=== PATIENT | female | born 1985 | race Caucasian/White ===

== ENCOUNTER → 2017-04-25 | Day surgery (SDC) | payer OTHER ==
--- NOTE | 2017-04-19 11:46 | MH ---
cc: ANGELICA TORREZ MD DATE OF ADMISSION: 04/25/2017 REASON FOR ADMISSION Laparoscopy, hysteroscopy with ablation, cystoscopy. HISTORY OF PRESENT ILLNESS The patient is a 31-year-old white female, 2, para 2, with multiple problems. She has issues with chronic pelvic pain, dysfunctional bleeding and bladder issues, bladder urgency. The patient has had an attempt at hysteroscopic evaluation and ablation by a doctor in [place]; this was aborted secondary to significant retroflexion of the uterus. Her pain is typically sharp, in the midline near her incision. She has a for distress and notes that her pain has worsened since that time. Her irregular menstrual bleeding occurs monthly; she has bleeding 8 to 10 days and wants to proceed with ablation. Her bladder issues are mainly that of urgency and frequency with a negative urinalysis. MEDICAL HISTORY ADHD. Otherwise negative for heart, lung, liver disease, hypertension, diabetes or stroke. PAST SURGICAL HISTORY . Attempted endometrial ablation. ALLERGIES GENTAMICIN. PENICILLIN. SULFA. MEDICATIONS Strattera 40 mg daily. SOCIAL HISTORY Works at a local [employer], attends college. No drugs. No alcohol, tobacco or caffeine. OBSTETRICAL HISTORY One vaginal delivery, one . GYNECOLOGIC HISTORY No STDs or abnormal Pap smears. FAMILY HISTORY Noncontributory. REVIEW OF SYSTEMS As above. No chest pain, orthopnea, PND. No nausea, vomiting, fever or chills. The remainder of 14-point review negative except as above. PHYSICAL EXAMINATION VITAL SIGNS: She is afebrile. Vital signs stable. Blood pressure is 120/70, height is 5'5", weight is 183, BMI is 30.5. GENERAL: The patient is alert and oriented, in no acute distress. No sign of cognitive dysfunction or depression. HEENT: Within normal limits. NECK: Supple. No JVD. CHEST: Clear. HEART: Regular rate and rhythm. ABDOMEN: Soft, nontender. No hepatosplenomegaly. No CVA tenderness. PELVIC EXAM: Will be detailed under anesthesia. EXTREMITIES: Normal. SKIN: Without rashes. NEUROLOGIC: Nonfocal. No DVT signs. ASSESSMENT Patient with chronic pelvic pain temporally related to her . We discussed the risks, benefits and alternative to the planned procedure including damage to surrounding organs, bleeding, infection and possibility that the pain may not be relieved. We may consider using an umbilical approach or left upper quadrant approach depending on findings at the exam under anesthesia. The patient with dysfunctional bleeding unresponsive to medicinal therapy. She had an attempted endometrial ablation previously but the device was never energized and the performing candy counter clerk did not feel comfortable proceeding with a significant retroflexion of the uterus. In light of this, we will attempt to do the ablation under laparoscopic guidance with repositioning of the uterus if possible. The patient is aware of the risks, benefits and alternatives of the planned procedure including damage to surrounding organs, bleeding, infection, the possibility that bleeding may not be remedied. The patient with urgency and frequency issues. We discussed options and will proceed with cystoscopy. She is aware of the possibility the pain will not be relieved. In light of the patient's allergies, we will use Flagyl 500 mg IV and Cleocin 900 mg IV for antibiotic prophylaxis and DVT prophylaxis with antibiotic coverage. Anticipate an outpatient procedure. MD KRISTY Cabral/JAMARCUS /11:25 AM /11:32 AM
[~2017-04-25] VITALS: Ht 165.1 cm; Wt 81.4 kg
[~2017-04-25] MED LIST: *MEPERIDINE 25 MG INJ VIAL PERIprocedural Use ONLY ONE; *morphine SULFATE 8 MG/ML PERIprocedure ONLY ONE; ACETAMINOPHEN 1000 MG/100 ML VIAL IV ONE; ATOM40 PO; CHLORHEXIDINE GLUCONATE 2 % 1 PACK (2 CLOTHS) TOPICAL PRN; CLINDAMYCIN INJ 900 MG in SODIUM CHLORIDE 0.9% INJ 100 ML IV ONE; DO NOT ADM ANY ANTICOAGULANT DRUGS PRN; FAMOTIDINE 20 MG/2 ML VIAL ONE; INSULIN HUMAN REGULAR 1,000 UNITS/10 ML VIAL SQ PRN; KETOROLAC TROMETHAMINE 30 MG/ML (IVP) VIAL IV PUSH PRN; LACTATED RINGER'S 1000 ML IV PRN; LIDOCAINE 1%/EPINEPHrine 1:100,000 SOLN 30 ML VIAL INFIL ONE; METOPROLOL TARTRATE 25 MG TAB PO PRN; METRONIDAZOLE 500 MG/100 ML ISONTONIC SOLN IV ONE; MIDAZOLAM HCL 2 MG/2 ML VIAL ONE; NEOSTIGMINE 3 MG/3 ML SYR IV ONE; ONDANSETRON HCL 4 MG/2 ML VIAL IV PUSH ONE; ONDANSETRON HCL 4 MG/2 ML VIAL IV PUSH PRN; POVIDONE IODINE 5% (ANTISEPSIS KIT) 4 APPLICATIONS EACH NARE PRN; PROPOFOL 200 MG/20 ML AMP IV ONE; SODIUM CHLORID 0.9% 500 ML IV PRN; SODIUM CHLORIDE 0.9% INJ 100 ML ONE; fentaNYL CITRATE 250 MCG/5 ML AMP ONE; traMADol HCL 50 MG TAB PO PRN
[2017-04-25 07:53] VITALS: BP 104/72; PULSE 83; RESP 16; TEMP 98.4; O2SAT 96
[2017-04-25 13:00] VITALS: RESP 16; TEMP 98.7; O2SAT 98
[2017-04-25 13:25] VITALS: BP 99/63; PULSE 80
--- NOTE | 2017-04-26 08:30 | MP ---
cc: CHRISTIAN ALEXANDER [facility], KEVIN SAUCEDOYESI LINDO DATE OF SURGERY 04/25/2017 PREOPERATIVE DIAGNOSES 1. Right-sided pelvic pain 2. Dysfunctional bleeding unresponsive to medicinal therapy, failure of prior endometrial ablation attempt 3. Bladder pain syndrome POSTOPERATIVE DIAGNOSES 1. Right-sided pelvic pain 2. Dysfunctional bleeding unresponsive to medicinal therapy, failure of prior endometrial ablation attempt 3. Bladder pain syndrome 4. Adhesions of the right tube and ovary to the right pelvic sidewall. 5. Approximately 5 x 6 cm intracavitary fibroid noted on hysteroscopy 6. Normal bladder with cystoscopy SURGEON Stan Mcleod MD ANESTHESIA General endotracheal with OG tube [employer] [place] staff x1 BLOOD LOSS 5 cc URINE OUTPUT 100 cc FLUIDS 1000 cc crystalloid FINDINGS External genitalia normal POP-Q score: Aa is -2, Ap is -2. Point C is -6. Total vaginal length is 10. Genital hiatus is 8. Perineal body is 4, uterus is retroverted approximately 12 weeks size, mobile. Internal anatomy of the pelvis shows adhesions of the right tube and ovary to the right pelvic sidewall otherwise pelvis is unremarkable. Hysteroscopy shows approximately 5 x 6 cm intracavitary fibroid. No other significant abnormality noted. Cystoscopy shows normal trigone and good coaptation of the urethra. Ureteral orifice patent x2. Dome and base of bladder normal. SPECIMENS Right tube COMPLICATIONS None DISPOSITION To recover room stable. COUNTS Needle and sponge counts correct. DRAINS Bah drains ANTIBIOTIC COVERAGE Cleocin and Flagyl DVT PROPHYLAXIS Sequential compression device. TIME OUT PROCEDURE Per protocol. SUMMARY OF INDICATION FOR THE PROCEDURE Patient with three separate issues. She complains of right-sided pelvic pain which is temporally related to an emergency C-sections several years ago. She also has dysfunctional bleeding unresponsive to medicinal therapy. She had had a prior attempt at an outside center for a NovaSure endometrial ablation, but was told she could not have the procedure because the uterus was to retroverted. She also has bladder pain syndrome with urgency, frequency and negative urinalysis. PROCEDURE The patient was taken to the operating room theater, identified, prepped and draped in a fashion appropriate for the planned procedure. She was in the dorsal spine position with careful attention paid to place of legs in stirrups to avoid undue stress to sensitive vascular structures. Above findings noted. Neurovascular integrity documented. Bah catheter was placed. Umbilicus was infiltrated with epinephrine/lidocaine solution. The patient extensive art work on the abdomen and we did our best to avoid marring the work. We were able to infiltrate the umbilicus, make a small incision and then placed a 5-mm scope under direct visualization. A trocar was placed suprapubically under direct visualization using a needle as a guide and using epinephrine/lidocaine solution. Also in the left lower quadrant, a similar procedure was performed. We using a 5-mm trocar here and an 8-mm at the suprapubic site. The pelvis was inspected. The most striking find was the significant adhesions of the tube and the ovary to the right pelvic sidewall. After significant tension on these adhesions, once these were taken down, the ovary and tube snapped back into the pelvis. The tube was removed in standard salpingectomy technique. The ovary appeared normal. It was left in place. The ureters were identified and cleared from the operative field. The remainder of the pelvis was inspected and found to be normal except for the retroverted uterus with a fundal fibroid. At this point, while we were still observing from above, we performed hysteroscopy using a 5-mm scope with a 30 degree lens. Using normal saline distension medium, we inspected the internal endometrial cavity while we observed from above to make sure there was no perforation. There was a large fiber encountered intracavitary. Decision was made to abort the ablation procedure at this point. There was no sign of any perforation. There was no tissue really to biopsy except for this large fibroid which appeared to be somewhat vascular so the decision was made to not biopsy this structure. At this point, cystoscopy was performed using a 5-mm scope with a 30 degree lens. We backfilled the bladder with 300 cc of normal saline. The above findings were noted. This was also done under direct visualization from above with the laparoscope. At this point, the lower procedures were concluded. The upper abdomen was again inspected with and without gas pressure. All areas were hemostatic. We did place hemostatic powder over the areas of dissection for added reassurance. The gas was expressed. We did place 4-0 Monocryl sutures in the incisions and closed the skin with Dermabond. At this point, the procedure was concluded. If the patient has continued issues with dysfunctional bleeding, she may be a reasonable candidate for either a hysteroscopic myomectomy which we would be referred out for or she may want to avail herself of a supracervical hysterectomy. She will need a discussion regarding the present FDA concerns regarding undiagnosed sarcomas, but I think she would be a reasonable supracervical candidate as she has relatively good apical support. I do not think she would be a very easy vaginal case and if we aer going to pursue with a total hysterectomy, I think total laparoscopic hysterectomy or LAVH may be reasonable. MD KRISTY Cabral/TOMMY /11:50 AM /8:18 AM MTDKylie
== END | disposition home or self-care (01) ==
LOC: HSDC 07:14
PROVIDERS: ATTEND Obstetrics & Gynecology Gynecology
DX: R10.2 Pelvic and perineal pain (principal); N93.8 Other specified abnormal uterine and vaginal bleeding; D25.9 Leiomyoma of uterus, unspecified; N85.4 Malposition of uterus; R39.15 Urgency of urination; R35.0 Frequency of micturition; N99.4 Postprocedural pelvic peritoneal adhesions; F90.9 Attention-deficit hyperactivity disorder, unspecified type
CPT/HCPCS: 00840; 52000; 58555; 58661; 88305; J0131; J1885; J2175; J2250; J2270; J2405; J2710; J3010; J7120

== ENCOUNTER → 2017-07-13 | Day surgery (SDC) | payer OTHER ==
--- NOTE | 2017-07-07 12:24 | MH ---
cc: CHRISTIAN ALEXANDER,YESI TORREZ,ANGELICA SAUCEDO,NAOMI POWERS DATE OF ADMISSION 07/13/2017 DATE OF 1985 REASON FOR ADMISSION Laparoscopic supracervical hysterectomy HISTORY OF PRESENT ILLNESS The patient is a 32-year-old white female 2, para 2 who has had issues with dysfunctional bleeding. She has had an ultrasound and has hysteroscopy that shows a large intracavitary fibroid. She has a laparoscopy in April of 2017 with lysis of adhesions. At this point, she declines myomectomy and wants to proceed with hysterectomy. PAST MEDICAL HISTORY The patient's medical history is negative for heart, lung, liver disease, hypertension, diabetes or stroke. Does have issue with ADHD. PAST SURGICAL HISTORY 1. x2 2. Laparoscopy with lysis of adhesions 3. Hysteroscopy with failed endometrial ablation 4. Cystoscopy ALLERGIES GENTAMYCIN, PENICILLIN, SULFA MEDICATIONS Strattera 40 mg daily SOCIAL HISTORY Works at a [employer]. No alcohol, tobacco, or caffeine. OBSTETRICAL HISTORY One , one vaginal delivery. GYNECOLOGIC HISTORY No STD's or abnormal Pap smears. FAMILY HISTORY Noncontributory REVIEW OF SYSTEMS As above. No chest pain, orthopnea, PND. No nausea, vomiting, fever, or chills. No vaginal bleeding or discharge. PHYSICAL EXAM On exam, she is afebrile, vital signs are stable with a blood pressure was 120/76, 5.5, weight 169, BMI is 28.3. GENERAL: The patient is alert and oriented in stress no sign of cognitive dysfunction or depression. HEENT: Within normal limits is supple. NECK: Supple. No JVD. CHEST: Clear. HEART: Regular rate and rhythm. ABDOMEN: Soft and nontender. No hepatosplenomegaly. No CVA tenderness. PELVIC: Exam POP-Q score: Aa is -2, Ap is -2. Point C is -6. Total vaginal length is 10. Genital hiatus is 8. Perineal body is 4. The uterus is approximately 12 weeks size. Further exam under anesthesia. EXTREMITIES: Warm, skin without rashes. NEUROLOGIC: Exam is nonfocal. No DVT signs. ASSESSMENT Patient with intracavitary uterine fibroid declines myomectomy and wants to proceed with supracervical hysterectomy. The patient and I discussed at length the options for management and treatment. She is aware of the risks, benefits and alternatives to the planned procedure including damage to surrounding organs, bleeding, infection, dyspareunia, operative risks to the bladder, bowel or urinary tract. The patient and I discussed extensively issues regarding FDA concerns regarding undiagnosed sarcoma. The patient has had hysteroscopy and D&C. Biopsy of the cavity appears to be negative, but she is aware that there are no preoperative tests that definitively rule out sarcoma. She is given the option of open hysterectomy which she declines. She is aware that morcellation will possibly upstage her should she have sarcoma and she elects to proceed with the procedure knowing this risk. At this point, we use Flagyl and Cleocin for her antibiotic prophylaxis. DVT prophylaxis with sequential compression device. Anticipate outpatient procedure. MD KRISTY Cabral/TOMMY /11:48 AM /12:11 PM
[~2017-07-13] VITALS: Ht 165.1 cm; Wt 80.3 kg
[~2017-07-13] MED LIST changes: +ACETAMINOPHEN 1000 MG/100 ML 100 ML IV ONE; -ACETAMINOPHEN 1000 MG/100 ML VIAL IV ONE; +BUPIVACAINE/EPINEPHRINE 0.5% 50 ML VIAL ONE; -CLINDAMYCIN INJ 900 MG in SODIUM CHLORIDE 0.9% INJ 100 ML IV ONE; +CLINDAMYCIN INJ 900 MG in SODIUM CHLORIDE 0.9% INJ 100 ML IV SCH; +DEXAMETHASONE SOD PHOS 4 MG/ML VIAL ONE; +FLUORESCEIN SOD 10% SOLN 500 MG/5 ML AMP ONE; +HYDR1CAP30 PO; +HYDROmorphone HCL PF 2 MG/ML VIAL ONE; +KETO2CRE TOPICAL; +KETOROLAC TROMETHAMINE 30 MG/ML (IVP) VIAL IV PUSH ONE; +LACTATED RINGER'S 1000 ML INJ 1,000 ML IV ONE; +LACTATED RINGER'S 1000 ML INJ 1,000 ML IV SCH; -LIDOCAINE 1%/EPINEPHrine 1:100,000 SOLN 30 ML VIAL INFIL ONE; +LIDOCAINE 2%/EPINEPHrine PF 1:200,000 20ML SDV ONE; -METRONIDAZOLE 500 MG/100 ML ISONTONIC SOLN IV ONE; +METRONIDAZOLE 500 MG/100 ML ISONTONIC SOLN IV SCH; +STRA80CA PO; +SUGAMMADEX SODIUM 200 MG/2 ML VIAL IV PUSH ONE; -fentaNYL CITRATE 250 MCG/5 ML AMP ONE
--- NOTE | 2017-07-13 10:35 | MP ---
cc: ANGELICA TORREZ MD,KEVIN ROJO,YESI EVANS,DON Hyde MD DATE OF SURGERY 07/13/2017 PREOPERATIVE DIAGNOSES Pelvic pain, dysmenorrhea, uterine fibroids. POSTOPERATIVE DIAGNOSES Pelvic pain, dysmenorrhea, uterine fibroids with left hydropic tube. PROCEDURE 1. Laparoscopic supracervical hysterectomy 2. Left salpingectomy. SURGEON Dr. Torrez ANESTHESIA General endotracheal with OG tube [employer] [place] staff x1 BLOOD LOSS 25 cc URINE OUTPUT 250 cc FLUIDS 1500 cc crystalloid FINDINGS External genitalia normal. POP-Q score: Aa is -1, Ap is 0. Point C is -6. Total vaginal length is 10. Genital hiatus is 6. Perineal body is 4. Uterus is retroverted approximately 12 weeks size, boggy consistent with adenomyosis and fundal uterine fibroid is noted. Tubes are absent on the right side, left side is somewhat hydropic and adhesed to the ovary. Ovaries themselves appear normal. Upper abdomen normal. Cystoscopy following hysterectomy shows normal trigone, good coaptation of urethra. Ureteral orifices patent x2. Dome and base of bladder normal. SPECIMENS 1. Morcellated uterus. 2. Left tube COMPLICATIONS None DISPOSITION Recovery room stable. COUNTS Needle and sponge counts correct. DRAINS Bah catheter. DISPOSITION To recovery room stable. ANTIBIOTIC PROPHYLAXIS Flagyl and Cleocin DVT PROPHYLAXIS Sequential compression device. TIME OUT PROCEDURE Per protocol SUMMARY OF INDICATIONS FOR THE PROCEDURE Patient with dysmenorrhea, pelvic pain. She had an attempted endometrial ablation, had a distortion of the uterine cavity by uterine fibroid that made that impossible. She had prior laparoscopy for pelvic pain and was noted to have adhesions on the right and an enlarged uterus. The patient had opted for hysterectomy, supracervical approach. She had been apprised of the issues regarding FDA concerns regarding undiagnosed sarcoma and declined open procedure and agreed to mechanical morcellation to remove the uterus. PROCEDURE The patient was taken to the operating room theater, identified, prepped and draped in a fashion appropriate for the planned procedure. She was in the dorsal spine position with careful attention paid to placement of legs in the stirrups to avoid undue stress to sensitive neurovascular structures. Above findings noted. Neurovascular integrity document. A Bah catheter was placed. The umbilicus was infiltrated with epinephrine/lidocaine solution. Incision was made. A 5 mm scope was placed under direct visualization. No damage to underlying bowel contents. Gas insufflated. Auxiliary trocars were placed a 12-mm port suprapubically and two 5 mm ports in the right and left lower quadrants. The patient has extensive tattoo art work on the abdomen and we did our best to avoid any of the art work. The uterus was quite boggy and retroverted. We were able to identify the utero-ovarian ligament on the right and left easily, identified the ureters right and left without complication. We took the left utero-ovarian ligament down with Harmonic energy, came across the round ligament, broad ligament, developed a bladder flap without difficulty and took the uterine vessels with Harmonic energy. On the right side, the utero-ovarian ligament was taken down. We came down across around the broad ligament. We developed the bladder flap and then came across the uterine vessels with good anatomic hemostatic result. The uterus was amputated from the cervix without complication. Gas was expressed. All areas were hemostatic with and without gas pressure. There was one area oozing at the bottom portion of the cervix at about the 6 o'clock position and this was rendered hemostatic with cautery. The morcellator was placed through the 10/12 port, morcellation was performed in a controlled fashion. No spill of contents externally. The pelvis was irrigated. All fragments were identified and obtained. The left ovary was adhesed and hydropic. She had a prior tubal ligation, but this appeared to be a segment of tube which had a characteristic hydrosalpinx appearance. This was removed. The tube on the right had already been removed at a prior procedure. Again, the gas was expressed. All areas were hemostatic with and without gas pressure. We did place hemostatic powder over the areas of dissection for added reassurance, closed the 10/12 port with a suture closure device of 0 Vicryl suture, closed the incisions with 4-0 Monocryl and Dermabond. The patient received IV fluorescein 1 cc. The bladder was back-filled with 300 cc of normal saline. A 5 mm scope was placed under direct visualization. The above findings were noted. The ureteral integrity was documented. The bladder was intact. The patient had the Bah catheter replaced. The patient was reversed from anesthesia, taken to the Recovery Room in stable condition. When the patient meets criteria, she will be discharge home from recovery and followup per protocol. MD KRISTY Cabral/TOMMY /9:39 AM /10:14 AM
[2017-07-13 11:42] VITALS: BP 106/79; PULSE 91; RESP 16; TEMP 97.8; O2SAT 100
== END | disposition home or self-care (01) ==
LOC: HSDC 06:05
PROVIDERS: ATTEND Obstetrics & Gynecology Gynecology
DX: D25.9 Leiomyoma of uterus, unspecified (principal); F90.9 Attention-deficit hyperactivity disorder, unspecified type; K21.9 Gastro-esophageal reflux disease without esophagitis; Z79.899 Other long term (current) drug therapy
CPT/HCPCS: 00840; 58542; 88307; J0131; J1100; J1170; J1885; J2175; J2250; J2270; J2405; J2710; J3010; J7120

== ENCOUNTER 2017-11-18 22:23 | Observation (INO) | payer OTHER ==
[~2017-11-18] VITALS: Ht 165.1 cm; Wt 78.1 kg
[~2017-11-18 22:23] MED LIST changes: -*MEPERIDINE 25 MG INJ VIAL PERIprocedural Use ONLY ONE; -*morphine SULFATE 8 MG/ML PERIprocedure ONLY ONE; -ACETAMINOPHEN 1000 MG/100 ML 100 ML IV ONE; -ATOM40 PO; +AZIT250T3 PO; -BUPIVACAINE/EPINEPHRINE 0.5% 50 ML VIAL ONE; -CHLORHEXIDINE GLUCONATE 2 % 1 PACK (2 CLOTHS) TOPICAL PRN; -CLINDAMYCIN INJ 900 MG in SODIUM CHLORIDE 0.9% INJ 100 ML IV SCH; -DEXAMETHASONE SOD PHOS 4 MG/ML VIAL ONE; -DO NOT ADM ANY ANTICOAGULANT DRUGS PRN; -FAMOTIDINE 20 MG/2 ML VIAL ONE; -FLUORESCEIN SOD 10% SOLN 500 MG/5 ML AMP ONE; -HYDROmorphone HCL PF 2 MG/ML VIAL ONE; -INSULIN HUMAN REGULAR 1,000 UNITS/10 ML VIAL SQ PRN; -KETO2CRE TOPICAL; -KETOROLAC TROMETHAMINE 30 MG/ML (IVP) VIAL IV PUSH ONE; -KETOROLAC TROMETHAMINE 30 MG/ML (IVP) VIAL IV PUSH PRN; -LACTATED RINGER'S 1000 ML INJ 1,000 ML IV ONE; -LACTATED RINGER'S 1000 ML INJ 1,000 ML IV SCH; -LACTATED RINGER'S 1000 ML IV PRN; -LIDOCAINE 2%/EPINEPHrine PF 1:200,000 20ML SDV ONE; -METOPROLOL TARTRATE 25 MG TAB PO PRN; -METRONIDAZOLE 500 MG/100 ML ISONTONIC SOLN IV SCH; -MIDAZOLAM HCL 2 MG/2 ML VIAL ONE; -NEOSTIGMINE 3 MG/3 ML SYR IV ONE; -ONDANSETRON HCL 4 MG/2 ML VIAL IV PUSH ONE; -ONDANSETRON HCL 4 MG/2 ML VIAL IV PUSH PRN; -POVIDONE IODINE 5% (ANTISEPSIS KIT) 4 APPLICATIONS EACH NARE PRN; -PROPOFOL 200 MG/20 ML AMP IV ONE; -SODIUM CHLORID 0.9% 500 ML IV PRN; -SODIUM CHLORIDE 0.9% INJ 100 ML ONE; -SUGAMMADEX SODIUM 200 MG/2 ML VIAL IV PUSH ONE; -traMADol HCL 50 MG TAB PO PRN
[2017-11-18 23:05] VITALS: BP 131/81; PULSE 130; RESP 24; TEMP 99.4; O2SAT 96
[2017-11-19] VITALS (8 sets, daily range): BP systolic 96–124; BP diastolic 62–84; PULSE 68–124; RESP 16–24; TEMP 98–98.5; O2SAT 96–100
[2017-11-19 00:19] LABS: AUTOMATED NEUTROPHIL # 12.7 TH/MM3 (1.8-7.7); BASOPHIL # 0.5 TH/MM3 (0-0.2); BASOPHIL % 2.8 % (0.0-2.0); EOSINOPHIL # 0.1 TH/MM3 (0-0.4); EOSINOPHIL % 0.7 % (0.0-4.0); HEMATOCRIT 45.1 % (35.0-46.0); HEMOGLOBIN 15.4 GM/DL (11.6-15.3); LYMPH % 18.4 % (9.0-44.0); LYMPHOCYTE # 3.1 TH/MM3 (1.0-4.8); MEAN CELL VOLUME 90.5 FL (80.0-100.0); MEAN CORPUSCULAR HEMOGLOBIN 30.8 PG (27.0-34.0); MEAN CORPUSCULAR HGB CONC 34.1 % (32.0-36.0); MEAN PLATELET VOLUME 9.2 FL (7.0-11.0); MONO % 4.2 % (0.0-8.0); MONOCYTE # 0.7 TH/MM3 (0-0.9); NEUT % 73.9 % (16.0-70.0); PLATELET COUNT 314 TH/MM3 (150-450); RED BLOOD COUNT 4.99 MIL/MM3 (4.00-5.30); RED CELL DISTRIBUTION WIDTH 11.9 % (11.6-17.2); WHITE BLOOD COUNT 17.1 TH/MM3 (4.0-11.0)
[2017-11-19 00:27] LABS: CHLORIDE 104 MEQ/L (98-107); SODIUM (NA) 137 MEQ/L (136-145)
[2017-11-19 00:30] LABS: ALBUMIN 4.1 GM/DL (3.4-5.0); BICARBONATE 25.8 MEQ/L (21.0-32.0); GLUCOSE,RANDOM 86 MG/DL (74-106)
[2017-11-19 00:31] LABS: BLOOD UREA NITROGEN 12 MG/DL (7-18)
[2017-11-19 00:33] LABS: ALT (GPT) 23 U/L (10-53)
[2017-11-19 00:34] LABS: AST (GOT) 15 U/L (15-37); CREATININE 0.69 MG/DL (0.50-1.00); GLOMERULAR FILTRATION RATE 100 ML/MIN (>89)
[2017-11-19 00:35] LABS: TOTAL BILIRUBIN ADULT 0.5 MG/DL (0.2-1.0); TOTAL PROTEIN 8.2 GM/DL (6.4-8.2)
[2017-11-19 00:37] LABS: ALKALINE PHOSPHATASE 62 U/L (45-117)
[2017-11-19] MEDS ORDERED: SODIUM CHLOR 0.9% 1000 ML INJ 1,000 ML IV SCH (00:57)
[2017-11-19] MEDS ORDERED: SODIUM CHLORIDE 0.9% FLUSH 10 ML FLUSH IV FLUSH PRN ×2 (01:00→03:00)
[2017-11-19] MEDS ORDERED: ONDANSETRON HCL 4 MG/2 ML VIAL IVP ONE ×2 (01:00→02:45)
[2017-11-19] MEDS ORDERED: HYDROmorphone HCL PF 2 MG/ML VIAL IVS ONE ×2 (01:00→02:45)
--- NOTE | 2017-11-19 01:02 | PD ---
HPI Chief Complaint: Abdominal Pain Time Seen by Provider: 00:54 Travel History International Travel<30 days: No Contact w/Intl Traveler<30days: No Traveled to known affect area: No History of Present Illness HPI The patient is a 32-year-old female that complains of generalized abdominal pain along with nausea without vomiting since 9 PM yesterday. The patient has had a hysterectomy but they left her cervix and in both ovaries. She still has her gallbladder and appendix. She states she has never had this pain before. She denies any fever. She denies any diarrhea. PFSH Past Medical History ADHD: Yes Cancer: No Cardiovascular Problems: No Diminished Hearing: No Endocrine: No Gastrointestinal Disorders: Yes (GERD CONTROLLED BY DIET) Genitourinary: No Hepatitis: No Hiatal Hernia: No Immune Disorder: No Musculoskeletal: No Neurologic: No Psychiatric: Yes (ANXIETY AND ADHD) Reproductive: Yes Respiratory: No Immunizations Current: No Tetanus Vaccination: > 5 Years Influenza Vaccination: No ?: Not : 1 Para: 1 Miscarriage: 1 Tubal Ligation: Yes Past Surgical History Abdominal Surgery: No Body Medical Devices: NONE Cardiac Surgery: No Section: Yes Ear Surgery: No Endocrine Surgery: No Eye Surgery: No Genitourinary Surgery: No Gynecologic Surgery: Yes (C SECTION, TL) Hysterectomy: Yes Oral Surgery: Yes (TONSILLECTOMY, ADENOIDECTOMY AND UVULECTOMY) Thoracic Surgery: No Tonsillectomy: Yes Other Surgery: Yes Social History Alcohol Use: Yes (OCC) Tobacco Use: No Substance Use: No Allergies-Medications (Allergen,Severity, Reaction): Coded Allergies: Sulfa (Sulfonamide Antibiotics) (Verified Allergy, Severe, Permanent dijsability , 11/18/17) gentamicin (Verified Allergy, Severe, Permanent Disability , 11/18/17) penicillin G (Verified Allergy, Severe, Hives, 11/18/17) Reported Meds & Prescriptions Reported Meds & Active Scripts Active Strattera (Atomoxetine) 80 Mg Cap 80 Mg PO DAILY Review of Systems Except as stated in HPI: all other systems reviewed are Neg Physical Exam Narrative GENERAL: The patient is alert, oriented 3 in moderate to severe distress with her abdominal discomfort. Her vital signs show heart rate of 1:30, respirations 24, temperature 99.4 but otherwise unremarkable. SKIN: Focused skin assessment warm/dry. HEAD: Atraumatic. Normocephalic. EYES: Pupils equal and round. No scleral icterus. No injection or drainage. ENT: No nasal bleeding or discharge. Mucous membranes pink and moist. NECK: Trachea midline. No JVD. CARDIOVASCULAR: Regular rate and rhythm. No murmur appreciated. RESPIRATORY: No accessory muscle use. Clear to auscultation. Breath sounds equal bilaterally. GASTROINTESTINAL: Abdomen soft, with tenderness to direct palpation in all 4 quadrants including both flanks. The abdomen is nondistended. Hepatic and splenic margins not palpable. No guarding or rebound is present. MUSCULOSKELETAL: No obvious deformities. No clubbing. No cyanosis. No edema. NEUROLOGICAL: Awake and alert. No obvious cranial nerve deficits. Motor grossly within normal limits. Normal speech. PSYCHIATRIC: Appropriate mood and affect; insight and judgment normal. Data Data Last Documented VS Vital Signs Date Time Temp Pulse Resp B/P (MAP) Pulse Ox O2 Delivery O2 Flow Rate FiO2 11/19/17 01:22 103 20 117/84 (95) 99 Room Air 11/18/17 23:05 99.4 Orders Orders Complete Blood Count With Diff (11/18/17 23:53) Comprehensive Metabolic Panel (11/18/17 23:53) Urinalysis - C+S If Indicated (11/18/17 23:53) Ct Abd/Pel W Iv Contrast(Rout) (11/19/17 00:57) Iv Access Insert/Monitor (11/19/17 00:57) Ecg Monitoring (11/19/17 00:57) Oximetry (11/19/17 00:57) Hydromorphone Pf Inj (Dilaudid Pf Inj) (11/19/17 01:00) Ondansetron Inj (Zofran Inj) (11/19/17 01:00) Sodium Chlor 0.9% 1000 Ml Inj (Ns 1000 M (11/19/17 00:57) Sodium Chloride 0.9% Flush (Ns Flush) (11/19/17 01:00) Lipase (11/19/17 00:05) Iohexol 350 Inj (Omnipaque 350 Inj) (11/19/16 01:45) Hydromorphone Pf Inj (Dilaudid Pf Inj) (11/19/17 02:45) Ondansetron Inj (Zofran Inj) (11/19/17 02:45) Sodium Chlor 0.9% 1000 Ml Inj (Ns 1000 M (11/19/17 02:45) Place In Observation (11/19/17 ) Vital Signs (Adult) Q4H (11/19/17 02:58) Activity Oob Ad Reina (11/19/17 02:58) Intake + Output STEFFANY.QSHIFT (11/19/17 02:58) Diet Regular Basic (11/19/17 Breakfast) Sodium Chlor 0.9% 1000 Ml Inj (Ns 1000 M (11/19/17 02:58) Sodium Chloride 0.9% Flush (Ns Flush) (11/19/17 03:00) Sodium Chloride 0.9% Flush (Ns Flush) (11/19/17 09:00) Ondansetron Inj (Zofran Inj) (11/19/17 03:00) Comprehensive Metabolic Panel (11/20/17 06:00) Complete Blood Count With Diff (11/20/17 06:00) Scd Bilateral/Knee High STEFFANY.BID (11/19/17 02:58) Tyrese Bilateral/Knee High STEFFANY.QSHIFT (11/19/17 03:01) Acetaminophen (Tylenol) (11/19/17 03:00) Acetamin-Hydrocod 325-5 Mg ([place] 5-325 (11/19/17 03:00) Morphine Inj (Morphine Inj) (11/19/17 03:00) Docusate Sodium-Senna (Olga-Colace) (11/19/17 09:00) Magnesium Hydroxide Liq (Milk Of Magnesi (11/19/17 03:00) Sennosides (Senokot) (11/19/17 03:00) Bisacodyl Supp (Dulcolax Supp) (11/19/17 03:00) Lactulose Liq (Lactulose Liq) (11/19/17 03:00) Admit Order (Ed Use Only) (11/19/17 03:01) Labs Laboratory Tests Test 11/19/17 00:05 11/19/17 02:25 White Blood Count 17.1 TH/MM3 Red Blood Count 4.99 MIL/MM3 Hemoglobin 15.4 GM/DL Hematocrit 45.1 % Mean Corpuscular Volume 90.5 FL Mean Corpuscular Hemoglobin 30.8 PG Mean Corpuscular Hemoglobin Concent 34.1 % Red Cell Distribution Width 11.9 % Platelet Count 314 TH/MM3 Mean Platelet Volume 9.2 FL Neutrophils (%) (Auto) 73.9 % Lymphocytes (%) (Auto) 18.4 % Monocytes (%) (Auto) 4.2 % Eosinophils (%) (Auto) 0.7 % Basophils (%) (Auto) 2.8 % Neutrophils # (Auto) 12.7 TH/MM3 Lymphocytes # (Auto) 3.1 TH/MM3 Monocytes # (Auto) 0.7 TH/MM3 Eosinophils # (Auto) 0.1 TH/MM3 Basophils # (Auto) 0.5 TH/MM3 CBC Comment DIFF FINAL Differential Comment Blood Urea Nitrogen 12 MG/DL Creatinine 0.69 MG/DL Random Glucose 86 MG/DL Total Protein 8.2 GM/DL Albumin 4.1 GM/DL Calcium Level 9.0 MG/DL Alkaline Phosphatase 62 U/L Aspartate Amino Transf (AST/SGOT) 15 U/L Alanine Aminotransferase (ALT/SGPT) 23 U/L Total Bilirubin 0.5 MG/DL Sodium Level 137 MEQ/L Potassium Level 3.7 MEQ/L Chloride Level 104 MEQ/L Carbon Dioxide Level 25.8 MEQ/L Anion Gap 7 MEQ/L Estimat Glomerular Filtration Rate 100 ML/MIN Lipase 198 U/L Urine Color YELLOW Urine Turbidity CLEAR Urine pH 5.5 Urine Specific [place] GREATER THAN 1.035 Urine Protein NEG mg/dL Urine Glucose (UA) NEG mg/dL Urine Ketones NEG mg/dL Urine Occult Blood NEG Urine Nitrite NEG Urine Bilirubin NEG Urine Leukocyte Esterase NEG Urine RBC 0-2 /hpf Urine WBC 6-8 /hpf Urine Squamous Epithelial Cells 0-5 /hpf Urine Bacteria OCC /hpf Microscopic Urinalysis Comment CULT NOT INDICATED MDM Medical Decision Making Medical Screen Exam Complete: Yes Emergency Medical Condition: Yes Medical Record Reviewed: Yes Interpretation(s) The CBC shows a white count of 17,100 with 74% neutrophils. The hemoglobin is 15.4 and hematocrit of 45.1. The complete metabolic profile is normal. The urine shows specific gravity of greater than 1.035 but is otherwise unremarkable. Culture is not indicated on the urine. Differential Diagnosis Pyelonephritis, colitis, cholecystitis, pancreatitis, dehydration, electrolyte disorder, appendicitis, intra-abdominal abscess Narrative Course The patient has abdominal pain of unknown etiology. She also has mild to moderate dehydration as suggested by the elevated hemoglobin and probable hemoconcentration. Also the specific gravity in the urine is extremely high. Physician Communication Physician Communication I discussed the patient with Dr. Alberto, the patient will be 23 hour observation to her. Diagnosis Primary Impression: Pain, abdominal, unknown etiology Additional Impression: Mild dehydration Admitting Information Admitting Physician Requests: Observation Reymundo Gomes MD Nov 19, 2017 01:02
[2017-11-19 01:18] LABS: LIPASE 198 U/L (73-393)
[2017-11-19] MEDS ORDERED: IOHEXOL 350 MG/ML 10 ML VIAL (for RAD DIAG) IVCONTRAST ONE (01:34)
[2017-11-19] MEDS: IOHEXOL 350 MG/ML 10 ML VIAL (for RAD DIAG) IVCONTRAST ONE (01:47)
--- NOTE | 2017-11-19 02:00 | RADRPT ---
EXAM DATE/TIME: 11/19/2017 01:34 [facility] COMPARISON: No previous studies available for comparison. INDICATIONS : New onset of diffuse abdominal pain. IV CONTRAST: 96 cc Omnipaque 350 (iohexol) IV ORAL CONTRAST: No oral contrast ingested. RADIATION DOSE: 8.57 CTDIvol (mGy) MEDICAL HISTORY : Gastroesophageal reflux disease. SURGICAL HISTORY : section. Hysterectomy. ENCOUNTER: Initial ACUITY: 1 day PAIN SCALE: 9/10 LOCATION: abdomen TECHNIQUE: Volumetric scanning of the abdomen and pelvis was performed. Using automated exposure control and ad justment of the mA and/or kV according to patient size, radiation dose was kept as low as reasonably achievable to obtain optimal diagnostic quality images. DICOM format image data is available electro nically for review and comparison. FINDINGS: LOWER LUNGS: Mild bibasilar atelectasis. LIVER: Homogeneous density without lesion. There is no dilation of the biliary tree. No calcified gallston es. SPLEEN: Normal size without lesion. PANCREAS: Within normal limits. KIDNEYS: Normal in size and shape. There is no mass or hydronephrosis. Tiny 2 mm stone lower pole left kidney not causing obstruction. Tiny 2 mm stone upper pole right kidney not causing obstruction. ADRENAL GLANDS: Within normal limits. VASCULAR: There is no aortic aneurysm. BOWEL/MESENTERY: The stomach, small bowel, and colon demonstrate no acute abnormality. There is no free intraperitone al air or fluid. The appendix is unremarkable. No inflammatory changes. ABDOMINAL WALL: Within normal limits. RETROPERITONEUM: There is no lymphadenopathy. BLADDER: No wall thickening or mass. REPRODUCTIVE: Within normal limits. INGUINAL: There is no lymphadenopathy or hernia. MUSCULOSKELETAL: Within normal limits for patient age. CONCLUSION: 1. Tiny 2 mm stone upper pole right kidney not causing obstruction. Tiny 2 mm stone lower pole left [place] not causing obstruction. 2. Otherwise, unremarkable examination for patient's age. Oliverio Bee MD on November 19, 2017 at 1:55 Board Certified Radiologist. This report was verified electronically.
[2017-11-19 02:35] LABS: BILIRUBIN, URINE NEG (NEG); BLOOD, URINE NEG (NEG); GLUCOSE,URINE NEG (NEG); KETONE, URINE NEG (NEG); NITRITE,URINE NEG (NEG); PH, URINE 5.5 (5.0-8.5); URINE LEUKOCYTE ESTERASE NEG (NEG)
[2017-11-19 02:42] LABS: BACTERIA, URINE OCC /hpf; RBC, URINE 0-2 /hpf (0-3); SQUAMOUS EPITHELIAL CELL URINE 0-5 /hpf (0-5); URINE COLOR YELLOW (YELLW/STRAW)
[2017-11-19] MEDS: SODIUM CHLOR 0.9% 1000 ML INJ 1,000 ML IV SCH ×5 (02:58→18:32)
[2017-11-19] MEDS ORDERED: BISACODYL 10 MG SUPP RECTAL PRN (03:00)
[2017-11-19] MEDS ORDERED: MAGNESIUM HYDROXIDE SUSP 30 ML CUP PO PRN (03:00)
[2017-11-19] MEDS ORDERED: ACETAMINOPHEN 325 MG TAB PO PRN (03:00)
[2017-11-19] MEDS ORDERED: LACTULOSE SYRUP 20 GM/30 ML CUP PO PRN (03:00)
[2017-11-19] MEDS ORDERED: ONDANSETRON HCL 4 MG/2 ML VIAL IVP PRN (03:00)
[2017-11-19] MEDS ORDERED: MORPHINE SULFATE 2 MG/ML INJ IV PUSH PRN (03:00)
[2017-11-19] MEDS ORDERED: SENNOSIDES 8.6 MG TAB PO PRN (03:00)
[2017-11-19] MEDS: ACETAMINOPHEN/HYDROcodone 325 MG/5 MG TAB PO PRN ×4 (05:44→20:15)
[2017-11-19] MEDS: SODIUM CHLORIDE 0.9% FLUSH 10 ML FLUSH IV FLUSH SCH ×2 (08:25→20:15)
[2017-11-19] MEDS: DOCUSATE SODIUM 50 MG/SENNA 8.6 MG TAB PO SCH ×2 (08:25→20:15)
--- NOTE | 2017-11-19 13:20 | HHI.HP ---
[facility] Non-Staff Admission Diagnosis Abdominal pain unknown etiology, dehydration Diagnoses: (1) Nephrolithiasis Diagnosis: Principal Chief Complaint: Abdominal pain Travel History International Travel<30 Days: No Contact w/Intl Traveler <30 Da: No Traveled to Known Affected Are: No History of Present Illness This is a 32-year-old female patient with a known medical history of ADHD, GERD and anxiety who presented to the ED with complaints of abdominal pain. Patient states that she developed an aching abdominal pain roughly 2 nights ago that was cramping in nature and constant, rated a 10/10 on pain scale at its worse. Does admit to associated nausea. Does admit to subjective fevers and chills; denies headache, vomiting, diarrhea or bowel changes or hematozemia. Denies any dysuria. Does admit to history of partial hysterectomy, removed for continued pelvis pain. Does have a history of anxiety and ADHD, on Strattera at home. Review of Systems Constitutional: DENIES: Fatigue, Fever, Weight loss Eyes: DENIES: Blurred vision, Diplopia Respiratory: DENIES: Cough, Sputum production Cardiovascular: DENIES: Chest pain Gastrointestinal: COMPLAINS OF: Abdominal pain, Nausea, DENIES: Black stools, Bloody stools, Constipation, Diarrhea, Vomiting Hematologic/lymphatic: DENIES: Bruising Immunologic/allergic: DENIES: Eczema Psychiatric: COMPLAINS OF: Anxiety Except as stated in HPI: all other systems reviewed are Neg Past Family Social History Past Medical History ADHD Anxiety GERD Past Surgical History Adenoidectomy Tonsillectomy Uvulectomy Hysterectomy Reported Medications Active Strattera (Atomoxetine) 80 Mg Cap 80 Mg PO DAILY Allergies: Coded Allergies: Sulfa (Sulfonamide Antibiotics) (Verified Allergy, Severe, Permanent dijsability , 11/18/17) gentamicin (Verified Allergy, Severe, Permanent Disability , 11/18/17) penicillin G (Verified Allergy, Severe, Hives, 11/18/17) Active Ordered Medications Current Medications Medications (Trade) Dose Ordered Sig/Holden Route Start Time Stop Time Status Last Admin Sodium Chloride 1,000 ml @ 100 mls/hr Q10H IV 11/19/17 02:58 11/19/17 08:36 (NS Flush) 2 ml UNSCH PRN IV FLUSH 11/19/17 03:00 (NS Flush) 2 ml BID IV FLUSH 11/19/17 09:00 11/19/17 08:25 (Zofran Inj) 4 mg Q6H PRN IVP 11/19/17 03:00 (Tylenol) 650 mg Q6H PRN PO 11/19/17 03:00 ([place] 5-325 Mg) 1 tab Q4H PRN PO 11/19/17 03:00 11/19/17 10:12 (Morphine Inj) 2 mg Q3H PRN IV PUSH 11/19/17 03:00 (Olga-Colace) 1 tab BID PO 11/19/17 09:00 11/19/17 08:25 (Milk Of Magnesia Liq) 30 ml Q12H PRN PO 11/19/17 03:00 (Senokot) 17.2 mg Q12H PRN PO 11/19/17 03:00 (Dulcolax Supp) 10 mg DAILY PRN RECTAL 11/19/17 03:00 (Lactulose Liq) 30 ml DAILY PRN PO 11/19/17 03:00 Social History Denies any tobacco abuse. Denies any alcohol use. Denies any illicit drug use. Physical Exam Vital Signs Vital Signs Date Time Temp Pulse Resp B/P (MAP) Pulse Ox O2 Delivery O2 Flow Rate FiO2 11/19/17 12:20 98.5 90 18 96/62 (73) 99 11/19/17 08:30 98.3 90 16 96/65 (75) 98 11/19/17 04:15 98.4 98 24 114/74 (87) 96 11/19/17 03:08 100 16 119/72 (88) 100 Room Air 11/19/17 01:22 103 20 117/84 (95) 99 Room Air 11/19/17 00:16 124 22 124/72 (89) 99 Room Air 11/18/17 23:05 99.4 130 24 131/81 (98) 96 Physical Exam GENERAL: This is a well-nourished, well-developed patient, in no apparent distress. SKIN: No rashes, ecchymoses or lesions. Warm and dry. HEAD: Atraumatic. Normocephalic. EYES: Pupils equal round and reactive. Extraocular motions intact. No scleral icterus. No injection or drainage. ENT: Nose without bleeding, purulent drainage or septal hematoma. Throat without erythema, tonsillar hypertrophy or exudate. Uvula midline. Airway patent. NECK: Trachea midline. No JVD. Supple. CARDIOVASCULAR: Regular rate and rhythm without murmurs, gallops, or rubs. RESPIRATORY: Clear to auscultation. Breath sounds equal bilaterally. No wheezes , rales, or rhonchi. GASTROINTESTINAL: Abdomen soft, nondistended. Mild tenderness to palpation to right upper quadrant. No guarding. Active x 4 q. MUSCULOSKELETAL: Extremities without clubbing, cyanosis, or edema. No joint tenderness, effusion, or edema noted. NEUROLOGICAL: Awake and alert. Cranial nerves II through XII intact. Motor and sensory grossly within normal limits. Five out of 5 muscle strength in all muscle groups. Normal speech. Laboratory Laboratory Tests Test 11/19/17 00:05 11/19/17 02:25 White Blood Count 17.1 Red Blood Count 4.99 Hemoglobin 15.4 Hematocrit 45.1 Mean Corpuscular Volume 90.5 Mean Corpuscular Hemoglobin 30.8 Mean Corpuscular Hemoglobin Concent 34.1 Red Cell Distribution Width 11.9 Platelet Count 314 Mean Platelet Volume 9.2 Neutrophils (%) (Auto) 73.9 Lymphocytes (%) (Auto) 18.4 Monocytes (%) (Auto) 4.2 Eosinophils (%) (Auto) 0.7 Basophils (%) (Auto) 2.8 Neutrophils # (Auto) 12.7 Lymphocytes # (Auto) 3.1 Monocytes # (Auto) 0.7 Eosinophils # (Auto) 0.1 Basophils # (Auto) 0.5 CBC Comment DIFF FINAL Differential Comment Blood Urea Nitrogen 12 Creatinine 0.69 Random Glucose 86 Total Protein 8.2 Albumin 4.1 Calcium Level 9.0 Alkaline Phosphatase 62 Aspartate Amino Transf (AST/SGOT) 15 Alanine Aminotransferase (ALT/SGPT) 23 Total Bilirubin 0.5 Sodium Level 137 Potassium Level 3.7 Chloride Level 104 Carbon Dioxide Level 25.8 Anion Gap 7 Estimat Glomerular Filtration Rate 100 Lipase 198 Urine Color YELLOW Urine Turbidity CLEAR Urine pH 5.5 Urine Specific [place] GREATER THAN 1.035 Urine Protein NEG Urine Glucose (UA) NEG Urine Ketones NEG Urine Occult Blood NEG Urine Nitrite NEG Urine Bilirubin NEG Urine Leukocyte Esterase NEG Urine RBC 0-2 Urine WBC 6-8 Urine Squamous Epithelial Cells 0-5 Urine Bacteria OCC Microscopic Urinalysis Comment CULT NOT INDICATED Result Diagram: 11/19/17 0005 11/19/17 0005 Imaging Last Impressions Abdomen/Pelvis CT 11/19/17 0057 Signed Impressions: Service Date/Time: Sunday, November 19, 2017 01:34 - CONCLUSION: 1. Tiny 2 mm stone upper pole right kidney not causing obstruction. Tiny 2 mm stone lower pole left kidney not causing obstruction. 2. Otherwise, unremarkable examination for patient's age. MD Miguel Daniel VTE Risk Assessment Caprinkenn VTE Risk Assessment: No/Low Risk (score <= 1) Caprini Risk Assessment Model Point Value = 1 Point Value = 2 Point Value = 3 Point Value = 5 Age 41-60 Minor surgery BMI > 25 kg/m2 Swollen legs Varicose veins or History of unexplained or recurrent spontaneous Oral contraceptives or hormone replacement Sepsis (< 1 month) Serious lung disease, including pneumonia (< 1 month) Abnormal pulmonary function Acute myocardial infarction Congestive heart failure (< 1 month) History of inflammatory bowel disease Medical patient at bed rest Age 61-74 Arthroscopic surgery Major open surgery (> 45 min) Laparoscopic surgery (> 45 min) Malignancy Confined to bed (> 72 hours) Immobilizing plaster cast Central venous access Age >= 75 History of VTE Family history of VTE Factor V Leiden Prothrombin [id number] Lupus anticoagulant Anticardiolipin antibodies Elevated serum homocysteine Heparin-induced thrombocytopenia Other congenital or acquired thrombophilia Stroke (< 1 month) Elective arthroplasty Hip, pelvis, or leg fracture Acute spinal cord injury (< 1 month) Prophylaxis Regimen Total Risk Factor Score Risk Level Prophylaxis Regimen 0-1 Low Early ambulation 2 Moderate Order ONE of the following: *Sequential Compression Device (SCD) *Heparin 5000 units SQ BID 3-4 Higher Order ONE of the following medications: *Heparin 5000 units SQ TID *Enoxaparin/Lovenox 40 mg SQ daily (WT < 150 kg, CrCl > 30 mL/min) *Enoxaparin/Lovenox 30 mg SQ daily (WT < 150 kg, CrCl > 10-29 mL/min) *Enoxaparin/Lovenox 30 mg SQ BID (WT < 150 kg, CrCl > 30 mL/min) AND/OR *Sequential Compression Device (SCD) 5 or more Highest Order ONE of the following medications: *Heparin 5000 units SQ TID (Preferred with Epidurals) *Enoxaparin/Lovenox 40 mg SQ daily (WT < 150 kg, CrCl > 30 mL/min) *Enoxaparin/Lovenox 30 mg SQ daily (WT < 150 kg, CrCl > 10-29 mL/min) *Enoxaparin/Lovenox 30 mg SQ BID (WT < 150 kg, CrCl > 30 mL/min) AND *Sequential Compression Device (SCD) Assessment and Plan Problem List: (1) Nephrolithiasis ICD Code: N20.0 - Calculus of kidney Plan: With pain and tachycardia (probably secondary to pain) and mild leukocytosis meet SIRs criteria. Unknown source. Abdomen/Pelvis CT reviewed showing tiny 2 mm stone upper pole right kidney not causing obstruction. Tiny 2 mm stone lower left kidney not causing obstruction. Pain control, Morphine IV and [place] PO available PRN as needed per pain scale. Status post 2L NS bolus in ED. Ensure hydration, continue IVF. Encourage PO intake as tolerated. Control nausea, Zofran available PRN. Afebrile. Monitor for any signs of infection. Supportive care. DVT Prophylaxis: SCDs. (2) ADHD (attention deficit hyperactivity disorder) ICD Code: F90.9 - Attention-deficit hyperactivity disorder, unspecified type Status: Acute Plan: Continue home Strattera. Supportive care. Stable. (3) Chronic anxiety ICD Code: F41.9 - Anxiety disorder, unspecified Plan: Xanax PRN as needed. DVT Prophylaxis: SCDs. Lisa Jordan Nov 19, 2017 13:20
[2017-11-19] MEDS: ALPRAZolam 0.5 MG TAB PO PRN (13:43)
[2017-11-19] MEDS: ATOMOXETINE HYDROCHLORIDE 40 MG CAP PO SCH (15:40)
[2017-11-20] VITALS: PULSE 95; RESP 18; TEMP 98; O2SAT 98
[2017-11-20] MEDS: ACETAMINOPHEN/HYDROcodone 325 MG/5 MG TAB PO PRN ×3 (00:26→09:17)
[2017-11-20] MEDS: ALPRAZolam 0.5 MG TAB PO PRN (00:26)
[2017-11-20 04:00] VITALS: BP 103/65; PULSE 80; RESP 20; TEMP 98.3; O2SAT 99
[2017-11-20] MEDS: SODIUM CHLOR 0.9% 1000 ML INJ 1,000 ML IV SCH (04:15)
[2017-11-20 05:13] VITALS: RESP 14
[2017-11-20 07:46] LABS: AUTOMATED NEUTROPHIL # 2.6 TH/MM3 (1.8-7.7); BASOPHIL # 0.1 TH/MM3 (0-0.2); BASOPHIL % 1.1 % (0.0-2.0); EOSINOPHIL # 0.2 TH/MM3 (0-0.4); EOSINOPHIL % 3.1 % (0.0-4.0); HEMATOCRIT 35.5 % (35.0-46.0); HEMOGLOBIN 12.1 GM/DL (11.6-15.3); LYMPHOCYTE # 2.4 TH/MM3 (1.0-4.8); MEAN CELL VOLUME 92.4 FL (80.0-100.0); MEAN CORPUSCULAR HEMOGLOBIN 31.5 PG (27.0-34.0); MEAN PLATELET VOLUME 9.3 FL (7.0-11.0); MONO % 6.9 % (0.0-8.0); MONOCYTE # 0.4 TH/MM3 (0-0.9); NEUT % 46.9 % (16.0-70.0); PLATELET COUNT 221 TH/MM3 (150-450); RED BLOOD COUNT 3.84 MIL/MM3 (4.00-5.30); RED CELL DISTRIBUTION WIDTH 11.9 % (11.6-17.2); WHITE BLOOD COUNT 5.8 TH/MM3 (4.0-11.0)
[2017-11-20 07:55] LABS: CHLORIDE 105 MEQ/L (98-107); SODIUM (NA) 140 MEQ/L (136-145)
[2017-11-20 08:07] LABS: ALBUMIN 2.9 GM/DL (3.4-5.0); ALKALINE PHOSPHATASE 49 U/L (45-117); ALT (GPT) 21 U/L (10-53); AST (GOT) 15 U/L (15-37); BICARBONATE 29.1 MEQ/L (21.0-32.0); BLOOD UREA NITROGEN 5 MG/DL (7-18); CALCIUM 8.1 MG/DL (8.5-10.1); CREATININE 0.58 MG/DL (0.50-1.00); GLOMERULAR FILTRATION RATE 122 ML/MIN (>89); GLUCOSE,RANDOM 72 MG/DL (74-106); TOTAL BILIRUBIN ADULT 0.6 MG/DL (0.2-1.0); TOTAL PROTEIN 6.4 GM/DL (6.4-8.2)
[2017-11-20] MEDS ORDERED: PROM25TA10 PO (09:05)
--- NOTE | 2017-11-20 09:06 | HHI.DCPOC ---
Discharge Care Plan Diagnosis: (1) Pain, abdominal, unknown etiology (2) Nephrolithiasis Goals to Promote Your Health * To prevent worsening of your condition and complications * To maintain your health at the optimal level Directions to Meet Your Goals Take your medications as prescribed Follow your dietary instruction Follow activity as directed Keep your appointments as scheduled Take your immunizations and boosters as scheduled If your symptoms worsen call your PCP, if no PCP go to Urgent Care Center or Emergency Room Smoking is Dangerous to Your Health. Avoid second hand smoke Call the 24-hour hour crisis hotline for domestic abuse at Sil Gonzalez MD Nov 20, 2017 09:06
--- NOTE | 2017-11-20 09:08 | HHI.DS ---
Discharge Summary Admission Date Nov 19, 2017 at 03:03 Discharge Date: Nov 20, 2017 Admitting Diagnosis Abdominal pain unknown etiology, dehydration (1) Nephrolithiasis ICD Code: N20.0 - Calculus of kidney (2) ADHD (attention deficit hyperactivity disorder) ICD Code: F90.9 - Attention-deficit hyperactivity disorder, unspecified type Status: Acute (3) Chronic anxiety ICD Code: F41.9 - Anxiety disorder, unspecified Procedures none Brief History - From Admission This is a 32-year-old female patient with a known medical history of ADHD, GERD and anxiety who presented to the ED with complaints of abdominal pain. Patient states that she developed an aching abdominal pain roughly 2 nights ago that was cramping in nature and constant, rated a 10/10 on pain scale at its worse. Does admit to associated nausea. Does admit to subjective fevers and chills; denies headache, vomiting, diarrhea or bowel changes or hematozemia. Denies any dysuria. Does admit to history of partial hysterectomy, removed for continued pelvis pain. Does have a history of anxiety and ADHD, on Strattera at home. CBC/BMP: 11/20/17 0700 11/20/17 0700 Significant Findings Laboratory Tests Test 11/19/17 00:05 11/19/17 02:25 11/20/17 07:00 White Blood Count 17.1 TH/MM3 (4.0-11.0) Hemoglobin 15.4 GM/DL (11.6-15.3) Neutrophils (%) (Auto) 73.9 % (16.0-70.0) Basophils (%) (Auto) 2.8 % (0.0-2.0) Neutrophils # (Auto) 12.7 TH/MM3 (1.8-7.7) Basophils # (Auto) 0.5 TH/MM3 (0-0.2) Urine Specific [place] GREATER THAN 1.035 Urine WBC 6-8 /hpf (0-5) Urine Bacteria OCC /hpf (NONE) Red Blood Count 3.84 MIL/MM3 (4.00-5.30) Blood Urea Nitrogen 5 MG/DL (7-18) Random Glucose 72 MG/DL (74-106) Albumin 2.9 GM/DL (3.4-5.0) Calcium Level 8.1 MG/DL (8.5-10.1) Imaging Last Impressions Abdomen/Pelvis CT 11/19/17 0057 Signed Impressions: Service Date/Time: Sunday, November 19, 2017 01:34 - CONCLUSION: 1. Tiny 2 mm stone upper pole right kidney not causing obstruction. Tiny 2 mm stone lower pole left kidney not causing obstruction. 2. Otherwise, unremarkable examination for patient's age. Oliverio Bee MD PE at Discharge GENERAL: This is a well-nourished, well-developed patient, in no apparent distress. CARDIOVASCULAR: Regular rate and rhythm without murmurs, gallops, or rubs. RESPIRATORY: Clear to auscultation. Breath sounds equal bilaterally. No wheezes , rales, or rhonchi. GASTROINTESTINAL: Abdomen soft, non-tender, nondistended. Normal active bowel sounds MUSCULOSKELETAL: Extremities without clubbing, cyanosis, or edema. NEURO: Alert & Oriented x4 to person, place, time, situation. Moves all ext x4 Pt update on day of discharge Patient seen and evaluated for discharge planning. No new complaints today. Imaging results discussed with patient. Patient with adequate bowel movements and tolerating her diet. She'll need outpatient follow-up. Patient's rest understanding Hospital Course Patient seen and evaluated for abdominal pain. She appears to have small kidney stones without evidence of obstruction. Patient was tolerating her diet and moving her bowels without difficulty. There is no evidence of infection or obstruction. Otherwise imaging was unremarkable. Clinically the patient was quite stable and appropriate for discharge Pt Condition on Discharge: Good Discharge Disposition: Discharge Home Discharge Time: <= 30 minutes Discharge Instructions DIET: Follow Instructions for: As Tolerated, No Restrictions Activities you can perform: Regular-No Restrictions Follow up Referrals: Gastroenterology @ [facility] PCP Follow-up New Medications: Promethazine (Phenergan) 25 Mg Tablet 25 MG PO Q6H PRN for NAUSEA OR VOMITING, #20 TAB 0 Refills Continued Medications: Atomoxetine (Strattera) 80 Mg Cap 80 MG PO DAILY for Hyperactivity Control, #90 CAP 0 Refills Sil Gonzalez MD Nov 20, 2017 09:08
[2017-11-20] MEDS: DOCUSATE SODIUM 50 MG/SENNA 8.6 MG TAB PO SCH (09:18)
[2017-11-20] MEDS: SODIUM CHLORIDE 0.9% FLUSH 10 ML FLUSH IV FLUSH SCH (09:18)
[2017-11-20] MEDS: ATOMOXETINE HYDROCHLORIDE 40 MG CAP PO SCH (09:18)
[2017-11-20] MEDS ORDERED: ACET300T2 PO (10:32)
[2017-11-21] MEDS: IOHEXOL 350 MG/ML 10 ML VIAL (for RAD DIAG) IVCONTRAST ONE (09:03)
== END 2017-11-20 10:48 | disposition home or self-care (01) ==
LOC: PHED 22:23 → PHEDA 11-19 03:03 → PHICU 11-19 04:10 → PH3A 11-20 05:18
PROVIDERS: ADMIT Hospitalist; ATTEND Hospitalist
DX: N20.0 Calculus of kidney (principal); E86.0 Dehydration; D72.829 Elevated white blood cell count, unspecified; F41.9 Anxiety disorder, unspecified; F90.9 Attention-deficit hyperactivity disorder, unspecified type; K21.9 Gastro-esophageal reflux disease without esophagitis; Z90.710 Acquired absence of both cervix and uterus
CPT/HCPCS: 74177; 80053; 81001; 83690; 85025; 96361; 96374; 96375; 96376; 99285; G0378; J1170; J2405; J7030; Q9967

== ENCOUNTER 2018-12-21 13:39 | Inpatient (IN) ==
[2018-12-21] MEDS ORDERED: Morphine Inj 4 MG/ML Vial IV.PUSH ONE (14:24)
[2018-12-21] MEDS ORDERED: Sod Chloride 0.9% Inj 1,000 ML IV.SIG ONE (14:24)
--- NOTE | 2018-12-21 14:33 | ED ---
HPI General Chief complaint: Abdominal Pain Stated complaint: Left Side Lower Abd Pain/Burning Time Seen by Provider: 12/21/18 14:04 Source: patient Mode of arrival: ambulatory Limitations: no limitations History of Present Illness HPI narrative: This a 33-year-old woman presents to the emergency department complaining of left-sided abdominal pain. She is a history of intermittent severe abdominal pain in the past. She has had been diagnosed with diverticulitis in the past due to CT findings. She also states she has had kidney stones in the past. She was referred to GI but is been unable to see him states symptoms started a couple hours ago, associate with nausea she has not had a bowel movement today. She has not noticed any urinary symptoms prior to arrival however here she knows that her urine sample she gave was a little bit dark. no other complaints. Related Data Home Medications Medication Instructions Recorded Confirmed No Known Home Medications 12/21/18 12/21/18 Allergies Allergy/AdvReac Type Severity Reaction Status Date / Time gentamicin Allergy Severe Permanent Verified 12/21/18 13:52 Disability penicillin G Allergy Severe Hives Verified 12/21/18 13:52 Sulfa (Sulfonamide Allergy Severe Permanent Verified 12/21/18 13:52 Antibiotics) dijsability Penicillins Allergy Intermediate RASH Verified 12/21/18 13:52 Review of Systems ROS: all other systems reviewed are negative [facility] Medical History Medical History ADHD (Acute) Anxiety (Acute) History of hysterectomy (Acute) Surgical History Surgical History History of tonsillectomy (Acute) Social History Social History Substance History: No History of Abuse Second Hand Smoke Exposure: No Smoking Status: Never smoker Tobacco Type: Cigarettes How Often Do You Have a Drink Containing Alcohol: Never Recent Travel in [facility] within the Last 8 Weeks: No Recent Out of Country Travel within the Last 8 Weeks: No Immunization History Tetanus Immunization: Unsure Exam Narrative Exam Narrative: GENERAL: Well-appearing 33-year-old woman, no acute distress. SKIN: Focused skin assessment warm/dry. HEAD: Atraumatic. Normocephalic. EYES: Pupils equal and round. No scleral icterus. No injection or drainage. ENT: No nasal bleeding or discharge. Mucous membranes pink and moist. NECK: Trachea midline. No JVD. CARDIOVASCULAR: Regular rate and rhythm. No murmur appreciated. RESPIRATORY: No accessory muscle use. Clear to auscultation. Breath sounds equal bilaterally. GASTROINTESTINAL: Abdomen soft, no distention, with diffuse left-sided tenderness to palpation. MUSCULOSKELETAL: No obvious deformities. No edema. NEUROLOGICAL: Awake and alert. No obvious cranial nerve deficits. Motor grossly within normal limits. Normal speech. Course Initial Documented Vital Signs Temperature 98.1 F 12/21/18 13:49 Pulse Rate 105 H 12/21/18 13:49 Respiratory Rate 16 12/21/18 13:49 Blood Pressure 151/96 H 12/21/18 13:49 Pulse Oximetry 96 12/21/18 13:49 Last Documented Vital Signs Temperature 98.1 F 12/21/18 13:49 Pulse Rate 100 H 12/21/18 13:51 Respiratory Rate 20 12/21/18 13:51 Blood Pressure 128/76 12/21/18 13:51 Pulse Oximetry 97 12/21/18 13:51 Medical Decision Making MDM Narrative Medical decision making narrative: 33-year-old woman with recurrent left-sided abdominal pain. History of colitis/diverticulitis. States a family history of bowel problems but no is been diagnosed with IBD in the past. States she has had kidney stones and certainly with the urinary changes that seems possible. Pyelonephritis also possible. Recommend repeating the CT scan mostly based on abnormal findings on her last CT with a recommendation for follow-up imaging. This, combined with the diagnostic uncertainty, I think makes repeat imaging. Reassess. FINAL: Patient with diverticulitis with likely abscess, worsening since last seen technique. Recommend admission, IV antibiotics, consider consultation if needed. Medical Screen Exam Complete: Yes Emergency Medical Condition: Yes Lab Data Lab results reviewed: Yes I reviewed the patient's lab results. Result diagrams: 12/21/18 14:46 12/21/18 14:46 Lab Results 12/21/18 12/21/18 12/21/18 Range/Units 14:46 14:46 14:49 CBC w Diff Auto diff final WBC 8.9 (4.0-11.0) th/mm3 RBC 4.54 (4.00-5.30) mil/mm3 Hgb 14.3 (11.6-15.3) gm/dL Hct 41.3 (35.0-46.0) % MCV 91.0 (80.0-100.0) fL MCH 31.4 (27.0-34.0) pg MCHC 34.5 (32.0-36.0) % RDW 11.6 (11.6-17.2) % Plt Count 293 (150-450) th/mm3 MPV 8.4 (7.0-11.0) fL Neut % (Auto) 70.7 H (16.0-70.0) % Lymph % (Auto) 22.5 (9.0-44.0) % [place] % (Auto) 4.6 (0.0-8.0) % Eos % (Auto) 0.7 (0.0-4.0) % Baso % (Auto) 1.5 (0.0-2.0) % Neut # (Auto) 6.3 (1.8-7.7) th/mm3 Lymph # (Auto) 2.0 (1.0-4.8) th/mm3 [place] # (Auto) 0.4 (0.0-0.9) th/mm3 Eos # (Auto) 0.1 (0.0-0.4) th/mm3 Baso # (Auto) 0.1 (0.0-0.2) th/mm3 WBC Differential . Differential Comment . Sodium 138 (136-145) meq/L Potassium 3.9 (3.5-5.1) meq/L Chloride 106 (98-107) meq/L Carbon Dioxide 27.8 (21.0-32.0) meq/L Anion Gap 4 L (5-15) meq/L BUN 14 (7-18) mg/dL Creatinine 0.65 (0.50-1.00) mg/dL Estimated GFR Greater than 89 (>89) mL/min Random Glucose 94 (74-106) mg/dL Calcium 8.8 (8.5-10.1) mg/dL Magnesium 2.3 (1.5-2.5) mg/dL Total Bilirubin 0.4 (0.2-1.0) mg/dL AST 14 L (15-37) U/L ALT 29 (10-53) U/L Alkaline Phosphatase 61 (45-117) U/L Total Protein 7.9 (6.4-8.2) g/dL Albumin 3.7 (3.4-5.0) g/dL Lipase 129 (73-393) U/L Ur Collection Type Clean catch Urine Color Yellow (Yellw/Straw) Urine Clarity Cloudy H (Clear) Urine pH 7.5 (5.0-8.5) Ur Specific [place] 1.010 (1.002-1.035) Urine Protein Negative (Neg-Trace) mg/dL Urine Glucose (UA) Negative (Negative) mg/dL Urine Ketones Negative (Negative) mg/dL Urine Occult Blood Negative (Negative) Urine Nitrate Negative (Negative) Urine Bilirubin Negative (Negative) Urine Urobilinogen 0.2 (Less than 2) mg/dL Ur Leukocyte Esterase Negative (Negative) Urine WBC 0-5 (0-5) /hpf Ur Squamous Epith Cells 0-5 (0-5) /hpf Amorphous Sediment Many H (None) /hpf Micro UA Comment Culture not ind Ur Microscopic Review Microscopic reviewed Urine Culture Comments Culture not ind Imaging Data Radiologist's impression: Abdomen/Pelvis CT 12/21/18 14:27 CONCLUSION: 1. Persistent induration about the short segment of distal descending colon with interval increase in the size of a enhancing thin wall adjacent fluid collection, now measuring 3 cm. This may represent a small peridiverticular abscess, or conceivably a enlarged node or mass. 2. No free fluid in the pelvis. No dilated loops of small or large bowel. Peridiverticular abscess versus mass. Discharge Plan Discharge Disposition Patient Disposition: ED Admit(ED Internal Use Only) Discharge Order Discharge Orders: ED Use Only Admit Order (Routine); Ordered 12/21/18 Ordered By: Henry Alfonso Physicians Team ED Provider: Henry Alfonso Primary Care Provider: Primary Care Barbara Matthew Rxs /Orders / Referrals /Forms Prescriptions: No Action No Known Home Medications RF: 0 Discharge Interventions Interventions: Vital Signs Last Done: 12/21/18 13:51 Status ED Status: With Doctor
[2018-12-21 14:56] LABS: Bilirubin,Urine Negative (Negative); Clarity,Urine Cloudy (Clear); Color,Urine Yellow (Yellw/Straw); Glucose,Urine (UA) Negative (Negative); Leukocyte Esterase,Urine Negative (Negative); Nitrite,Urine Negative (Negative); PH,Urine 7.5 (5.0-8.5); Urobilinogen,Urine 0.2 mg/dL (Less than 2)
[2018-12-21 14:58] LABS: Baso # (Auto) 0.1 th/mm3 (0.0-0.2); Baso % (Auto) 1.5 % (0.0-2.0); Eos # (Auto) 0.1 th/mm3 (0.0-0.4); Eos % (Auto) 0.7 % (0.0-4.0); Hematocrit 41.3 % (35.0-46.0); Hemoglobin 14.3 gm/dL (11.6-15.3); Lymph % (Auto) 22.5 % (9.0-44.0); Mean Corpuscular HGB Conc 34.5 % (32.0-36.0); Mean Corpuscular Hemoglobin 31.4 pg (27.0-34.0); Mean Platelet Volume 8.4 fL (7.0-11.0); Mono # (Auto) 0.4 th/mm3 (0.0-0.9); Mono % (Auto) 4.6 % (0.0-8.0); Neut # (Auto) 6.3 th/mm3 (1.8-7.7); Neut % (Auto) 70.7 % (16.0-70.0); Platelet Count 293 th/mm3 (150-450); Red Blood Count 4.54 mil/mm3 (4.00-5.30); Red Cell Distribution Width 11.6 % (11.6-17.2); White Blood Count 8.9 th/mm3 (4.0-11.0)
[2018-12-21 15:11] LABS: Chloride 106 meq/L (98-107); Potassium 3.9 meq/L (3.5-5.1); Sodium 138 meq/L (136-145)
[2018-12-21 15:14] LABS: Calcium 8.8 mg/dL (8.5-10.1)
[2018-12-21 15:15] LABS: Albumin 3.7 g/dL (3.4-5.0); Anion Gap 4 meq/L (5-15); Blood Urea Nitrogen 14 mg/dL (7-18); Carbon Dioxide 27.8 meq/L (21.0-32.0); Glucose,Random 94 mg/dL (74-106); Lipase 129 U/L (73-393); Magnesium 2.3 mg/dL (1.5-2.5)
[2018-12-21 15:17] LABS: Alanine Aminotransferase 29 U/L (10-53)
[2018-12-21 15:18] LABS: Aspartate Aminotransferase 14 U/L (15-37); Glomerular Filtration Rate Greater Than 89 mL/min (>89)
[2018-12-21 15:19] LABS: Total Protein 7.9 g/dL (6.4-8.2)
[2018-12-21 15:20] LABS: Alkaline Phosphatase 61 U/L (45-117)
--- NOTE | 2018-12-21 15:21 | CT ---
EXAM DATE: 12/21/2018 3:06 PM EST AGE/SEX: 33 years / Female INDICATIONS: Left abdominal pain. Nausea, vomiting and distention. CLINICAL DATA: This is the patient's initial encounter. Patient reports that signs and symptoms have been present for 1 day and indicates a pain score of 8/10. MEDICAL/SURGICAL HISTORY: Renal calculi. Diverticulitis. Hysterectomy. Tonsillectomy. ORAL CONTRAST: No oral contrast ingested. RADIATION DOSE: 12.66 CTDI (mGy) COMPARISON: [facility], CT ABDOMEN & PELVIS W CONTRAST, 06/16/2018. . TECHNIQUE: Multiple contiguous axial images were obtained through the abdomen and pelvis following b olus infusion of 95 ml Omnipaque 350 (iohexol) nonionic water-soluble contrast as a single exam dos e. No oral contrast ingested. Using automated exposure control and adjustment of the mA and/or kV ac cording to patient size, radiation dose was kept as low as reasonably achievable to obtain optimal di agnostic quality images. DICOM format image data is available electronically for review and comparis on. FINDINGS: Lower Lungs: The visualized lower lungs are clear. Liver: The liver has a homogeneous density without space-occupying lesion. There is no dilation of th e biliary tree. Calcified gallstones. Spleen: Homogeneous density without enlargement. Pancreas: Unremarkable without mass or calcification. Kidneys: Normal in size and shape. No evidence of mass or hydronephrosis. Stable 3 mm calcified ston e in the collecting system of the lower pole of the left kidney. Adrenal Glands: Unremarkable. Aorta: The aorta and proximal iliac vessels are grossly unremarkable without aneurysmal dilation. Bowel/Mesentery: No dilated loops of small or large bowel. There is persistent induration of the fat about the distal left colon, very similar appearance to prior CT in June 2018. There is a enhancin g mildly irregular oval-shaped opacity adjacent and anterior to the area of induration measuring 2.1 x 2.9 x 3.0 cm which is larger than on the prior scan. There is a low-density center but no intralumi nal gas. No focal fluid collections seen. No evidence of free gas. No evidence of free fluid. Abdominal Wall: Intact. Retroperitoneum: No evidence of adenopathy in the retrocrural, para-aortic, or deep pelvic regions. Bladder: Contours are smooth. Reproductive Organs: No abnormal masses or calcifications seen. Inguinal: The inguinal region is unremarkable without evidence of adenopathy. Bony Structures: Unremarkable. CONCLUSION: 1. Persistent induration about the short segment of distal descending colon with interval increase i n the size of a enhancing thin wall adjacent fluid collection, now measuring 3 cm. This may represent a small peridiverticular abscess, or conceivably a enlarged node or mass. 2. No free fluid in the pelvis. No dilated loops of small or large bowel. Electronically signed by: Geovanny Collado MD Board Certified Radiologist 12/21/2018 3:19 PM EST
[2018-12-21 15:24] LABS: WBC,Urine 0-5 /hpf (0-5)
[2018-12-21 15:25] LABS: Amorphous Sediment,Urine Many /hpf; Squamous Epithelial Cell,Urine 0-5 /hpf (0-5)
[2018-12-21] MEDS ORDERED: Ciprofloxacin 400 MG/200 ML 400 MG/200 ML PIGGYBACK IV.SIG ONE (15:41)
[2018-12-21] MEDS ORDERED: Morphine Inj 4 MG/ML Vial IV.PUSH PRN ×2 (15:42)
[2018-12-21] MEDS ORDERED: Acetaminophen 325 MG Tablet PO PRN (15:42)
[2018-12-21] MEDS ORDERED: HYDROmorphone PF Inj 2 MG/ML Vial IV.PUSH ONE (15:46)
[2018-12-21] MEDS: Sod Chloride 0.9% Inj 1,000 ML IV.CONT SCH (16:19)
--- NOTE | 2018-12-21 16:58 | P.HPIM ---
History of Present Illness Primary Care Physician: No Primary Care Physician Chief Complaint: Abdominal Pain History of Present Illness: Mrs. Gallegos is a 33-year-old female. She has come in the hospital secondary to abdominal pain. Because of the abdominal pain is diverticulitis. She has problems with recurrent diverticulitis. She never had a history of this but about 1.5 years ago she had a first episode of diverticulitis. Since then she has been getting episodes about every 3 months, this will be her sixth episode in 1.5 years. Imaging shows evidence of a fluid- filled mass of 3 cm suggestive of abscess or microperforation with abscess. Some of the changes seen on CT could be chronic given her frequent recurrence of disease. She denies any recent fevers. Primary symptom has been pain. No other complaints at this time. She has no other active medical problems. She does have a past history of uterine fibroma, which has caused her menometrorrhagia in the past. For this she underwent a partial hysterectomy, her cervix and ovaries remain intact. No other complaints tonight. Inpatient Certification Inpatient Certification: I certify that the inpatient services were ordered in accordance with Medicare regulations governing the order. This includes certification that hospital inpatient services are reasonable and necessary and in the case of services not specified as inpatient-only under 42 CFR 419.22(n), that they are appropriately provided as inpatient services in accordance to with the 2-midnight benchmark under 43 CFR 412.3(e) Estimated Total Length of Stay (Days): 3 Plans for Post Hospital Care: Home Review of Systems Constitutional: No fevers, no chills no night sweats, no fatigue, no weakness Eyes: No eye pain, no blurry vision, no loss of vision ENT: No sore throat, no ear pain, no rhinorrhea Cardiovascular: No chest pain, no tachycardia, no palpitations, no syncope Respiratory: No wheezing, no cough, no shortness of breath Gastrointestinal: abdominal pain, no black tarry stools, no bright red blood per rectum, no vomiting, no diarrhea Musculoskeletal: No joint pain, no muscle cramps, no stiffness Integumentary: No rash, no ulcers, no drainage Neurologic: No sensory loss, no loss of motor function, no dizziness Psychiatric: No behavioral changes, no hallucinations, no suicidal ideations PMFSH Medical History Medical History ADHD (Acute) Anxiety (Acute) History of hysterectomy (Acute) Surgical History Surgical History History of tonsillectomy (Acute) Family History Family History Other Osteoarthritis Social History Social History Substance History: No History of Abuse Second Hand Smoke Exposure: No Smoking Status: Never smoker Tobacco Type: Cigarettes How Often Do You Have a Drink Containing Alcohol: Never Recent Travel in [facility] within the Last 8 Weeks: No Recent Out of Country Travel within the Last 8 Weeks: No Immunization History Tetanus Immunization: Unsure Medications and Allergies Allergies Allergy/AdvReac Type Severity Reaction Status Date / Time gentamicin Allergy Severe Permanent Verified 12/21/18 13:52 Disability penicillin G Allergy Severe Hives Verified 12/21/18 13:52 Sulfa (Sulfonamide Allergy Severe Permanent Verified 12/21/18 13:52 Antibiotics) dijsability Penicillins Allergy Intermediate RASH Verified 12/21/18 13:52 Home Medications Medication Instructions Recorded Confirmed Type No Known Home Medications 12/21/18 12/21/18 History Active Medications: Active Medications Acetaminophen (Tylenol) 650 mg PO Q4H PRN PRN Reason: Temp > 100.4 Al Hydroxide/Mg Hydroxide (Milk Of Jag Liq) 30 ml PO Q12H PRN PRN Reason: Mild Constipation Sodium Chloride (Ns Inj) 1,000 mls @ 100 mls/hr IV.CONT .Q10H [facility] Last Admin: 12/21/18 16:19 Dose: 100 mls/hr Morphine Sulfate (Morphine Inj) 2 mg IV.PUSH Q4H PRN PRN Reason: Pain 3 to 6 Morphine Sulfate (Morphine Inj) 4 mg IV.PUSH Q4H PRN PRN Reason: Pain 7 to 10 Ondansetron HCl (Zofran Inj) 4 mg IV.PUSH Q6H PRN PRN Reason: NAUSEA OR VOMITING Sodium Chloride (Ns Flush) 2 ml IV.FLUSH PRN PRN PRN Reason: FLUSH AFTER USING IV ACCESS Sodium Chloride (Ns Flush) 2 ml IV.FLUSH BID [facility] Physical Exam Vital signs: Vital Signs 12/21/18 13:49 12/21/18 13:51 12/21/18 16:50 Temperature 98.1 F 97 F L Pulse Rate 105 H 100 H 93 H Respiratory Rate 16 20 20 Blood Pressure 151/96 H 128/76 124/78 Pulse Oximetry 96 97 Intake & Output 12/20/18 12/21/18 12/21/18 18:59 06:59 18:59 Intake Total 1200 / 1200 Balance 1200 / 1200 Weight 77 kg Intake: IV 1200 / 1200 Cipro 400 MG/200 ML Inj 400 mg 200 / 200 In 200 ml @ 200 mls/hr IV.SIG ONCE ONE Rx#:[id number] NS Inj 1,000 ML @ Wide Open IV. 1000 / 1000 SIG BOLUS ONE Rx#:[id number] Narrative: GENERAL: NAD, A&Ox3 HEAD: Normocephalic. NECK: Supple, trachea midline. No lymphadenopathy. EYES: No scleral icterus. No injection or drainage. CARDIOVASCULAR: Regular rate and rhythm without murmurs, gallops, or rubs. RESPIRATORY: Breath sounds equal bilaterally. No accessory muscle use. GASTROINTESTINAL: Abdomen soft, nondistended. Left lower quadrant abdominal tenderness MUSCULOSKELETAL: No cyanosis, or edema. SKIN: Warm and dry. NEURO: No focal neurological deficits. Results Labs CBC & Chem 7: 12/21/18 14:46 12/21/18 14:46 Imaging Impressions Abdomen/Pelvis CT 12/21/18 14:27 CONCLUSION: 1. Persistent induration about the short segment of distal descending colon with interval increase in the size of a enhancing thin wall adjacent fluid collection, now measuring 3 cm. This may represent a small peridiverticular abscess, or conceivably a enlarged node or mass. 2. No free fluid in the pelvis. No dilated loops of small or large bowel. Caprini VTE Risk Assessment Caprini VTE Risk Assessment: No/Low Risk (score <= 1) VTE Pharmacological Exception Reason: High risk for bleeding Caprini Risk Assessment Model: Point Value = 1 Point Value = 2 Point Value = 3 Point Value = 5 Age 41-60 Minor surgery BMI > 25 kg/m2 Swollen legs Varicose veins or History of unexplained or recurrent spontaneous Oral contraceptives or hormone replacement Sepsis (< 1 month) Serious lung disease, including pneumonia (< 1 month) Abnormal pulmonary function Acute myocardial infarction Congestive heart failure (< 1 month) History of inflammatory bowel disease Medical patient at bed rest Age 61-74 Arthroscopic surgery Major open surgery (> 45 min) Laparoscopic surgery (> 45 min) Malignancy Confined to bed (> 72 hours) Immobilizing plaster cast Central venous access Age >= 75 History of VTE Family history of VTE Factor V Leiden Prothrombin [id number] Lupus anticoagulant Anticardiolipin antibodies Elevated serum homocysteine Heparin-induced thrombocytopenia Other congenital or acquired thrombophilia Stroke (< 1 month) Elective arthroplasty Hip, pelvis, or leg fracture Acute spinal cord injury (< 1 month) Prophylaxis Regimen: Total Risk Factor Score Risk Level Prophylaxis Regimen 0-1 Low Early ambulation 2 Moderate Order ONE of the following: *Sequential Compression Device (SCD) *Heparin 5000 units SQ BID 3-4 Higher Order ONE of the following medications: *Heparin 5000 units SQ TID *Enoxaparin/Lovenox 40 mg SQ daily (WT < 150 kg, CrCl > 30 mL/min) *Enoxaparin/Lovenox 30 mg SQ daily (WT < 150 kg, CrCl > 10-29 mL/min) *Enoxaparin/Lovenox 30 mg SQ BID (WT < 150 kg, CrCl > 30 mL/min) AND/OR *Sequential Compression Device (SCD) 5 or more Highest Order ONE of the following medications: *Heparin 5000 units SQ TID (Preferred with Epidurals) *Enoxaparin/Lovenox 40 mg SQ daily (WT < 150 kg, CrCl > 30 mL/min) *Enoxaparin/Lovenox 30 mg SQ daily (WT < 150 kg, CrCl > 10-29 mL/min) *Enoxaparin/Lovenox 30 mg SQ BID (WT < 150 kg, CrCl > 30 mL/min) AND *Sequential Compression Device (SCD) Assessment and Plan Plan 33-year-old female admitted due to acute diverticulitis with abscess Acute diverticulitis Recurrent diverticulitis Diverticular abscess Flagyl Levaquin (Penicillin allergy) Currently this patient will be kept n.p.o. Probiotic once transition to p.o. GI consult Surgical consult History of hysterectomy History of uterine fibroma History of menometrorrhagia No current treatments needed No history of uterine cancer DVT prophylaxis SCDs
[2018-12-21] MEDS ORDERED: HYDROmorphone PF Inj 0.5 MG/0.5 ML Syringe IV.PUSH PRN (18:01)
[2018-12-21] MEDS: HYDROmorphone PF Inj 2 MG/ML Vial IV.PUSH PRN ×3 (18:08→23:56)
[2018-12-22] MEDS: HYDROmorphone PF Inj 2 MG/ML Vial IV.PUSH PRN ×3 (03:10→08:52)
[2018-12-22 06:25] LABS: Baso # (Auto) 0.2 th/mm3 (0.0-0.2); Baso % (Auto) 1.9 % (0.0-2.0); Eos # (Auto) 0.1 th/mm3 (0.0-0.4); Eos % (Auto) 1.2 % (0.0-4.0); Hematocrit 36.8 % (35.0-46.0); Hemoglobin 12.6 gm/dL (11.6-15.3); Lymph # (Auto) 2.2 th/mm3 (1.0-4.8); Lymph % (Auto) 24.2 % (9.0-44.0); Mean Corpuscular HGB Conc 34.2 % (32.0-36.0); Mean Corpuscular Hemoglobin 31.5 pg (27.0-34.0); Mean Corpuscular Volume 92.1 fL (80.0-100.0); Mean Platelet Volume 9.6 fL (7.0-11.0); Mono # (Auto) 0.6 th/mm3 (0.0-0.9); Mono % (Auto) 6.3 % (0.0-8.0); Neut % (Auto) 66.4 % (16.0-70.0); Platelet Count 224 th/mm3 (150-450); Red Cell Distribution Width 11.7 % (11.6-17.2); White Blood Count 9.1 th/mm3 (4.0-11.0)
[2018-12-22 06:34] LABS: Chloride 107 meq/L (98-107); Potassium 3.8 meq/L (3.5-5.1); Sodium 140 meq/L (136-145)
[2018-12-22 06:53] LABS: Alanine Aminotransferase 22 U/L (10-53); Albumin 3.2 g/dL (3.4-5.0); Alkaline Phosphatase 54 U/L (45-117); Anion Gap 5 meq/L (5-15); Aspartate Aminotransferase 11 U/L (15-37); Blood Urea Nitrogen 12 mg/dL (7-18); Carbon Dioxide 28.3 meq/L (21.0-32.0); Glomerular Filtration Rate 87 mL/min (>89); Glucose,Random 83 mg/dL (74-106); Total Protein 6.7 g/dL (6.4-8.2)
[2018-12-22] MEDS: Sod Chloride 0.9% Inj 1,000 ML IV.CONT SCH ×3 (08:10→23:12)
[2018-12-22] MEDS ORDERED: Acetaminophen 325 MG Tablet PO PRN (09:01)
--- NOTE | 2018-12-22 10:15 | P.PNIM ---
Subjective Interval history: No significant change in pain compared to yesterday. Case discussed with interventional radiology. Risk outweighs benefit in this situation, drainage is not recommended for the size and location of the fluid collection. No new complaints from the patient. Physical Exam Vital signs: Vital Signs 12/21/18 13:49 12/21/18 13:51 12/21/18 16:50 Temperature 98.1 F 97 F L Pulse Rate 105 H 100 H 93 H Respiratory Rate 16 20 20 Blood Pressure 151/96 H 128/76 124/78 Pulse Oximetry 96 97 12/21/18 17:30 12/21/18 20:00 12/21/18 21:45 Temperature 97.8 F 97.7 F Pulse Rate 90 82 Respiratory Rate 20 16 18 Blood Pressure 122/70 115/81 Pulse Oximetry 98 100 12/22/18 00:00 12/22/18 08:00 12/22/18 08:08 Temperature 97.2 F L 97.3 F L Pulse Rate 85 78 Respiratory Rate 16 20 20 Blood Pressure 107/80 104/69 Pulse Oximetry 99 100 12/22/18 09:29 Temperature Pulse Rate Respiratory Rate 20 Blood Pressure Pulse Oximetry Intake & Output 12/21/18 12/22/18 12/22/18 18:59 06:59 18:59 Intake Total 1400 / 1400 1150 / 1150 100 / 100 Balance 1400 / 1400 1150 / 1150 100 / 100 Weight 79.8 kg 80 kg Intake: IV 1400 / 1400 1150 / 1150 100 / 100 NS Inj 1,000 ML @ 100 mls/hr IV 100 / 100 900 / 900 .CONT .Q10H [facility] Rx#:[id number] Cipro 400 MG/200 ML Inj 400 mg 200 / 200 In 200 ml @ 200 mls/hr IV.SIG ONCE ONE Rx#:[id number] Levaquin 750 mg Premix Inj 150 150 / 150 ML @ 100 mls/hr IV.SIG Q24H [facility] Rx#:[id number] NS Inj 1,000 ML @ Wide Open IV. 1000 / 1000 SIG BOLUS ONE Rx#:[id number] Flagyl 500 MG Inj 100 ML @ 100 100 / 100 100 / 100 100 / 100 mls/hr IV.SIG Q8H [facility] Rx#: [id number] Other: # Voids 1 2 Date of Last Bowel Movement 12/20/18 12/20/18 12/20/18 Weight On Admission 79.8 kg Narrative: GENERAL: NAD, A&Ox3 HEAD: Normocephalic. NECK: Supple, trachea midline. No lymphadenopathy. EYES: No scleral icterus. No injection or drainage. CARDIOVASCULAR: Regular rate and rhythm without murmurs, gallops, or rubs. RESPIRATORY: Breath sounds equal bilaterally. No accessory muscle use. GASTROINTESTINAL: Abdomen soft, nondistended. Left lower quadrant abdominal tenderness MUSCULOSKELETAL: No cyanosis, or edema. SKIN: Warm and dry. NEURO: No focal neurological deficits. Results Labs CBC & Chem 7: 12/22/18 05:13 12/22/18 05:13 Imaging Imaging: Impressions Abdomen/Pelvis CT 12/21/18 14:27 CONCLUSION: 1. Persistent induration about the short segment of distal descending colon with interval increase in the size of a enhancing thin wall adjacent fluid collection, now measuring 3 cm. This may represent a small peridiverticular abscess, or conceivably a enlarged node or mass. 2. No free fluid in the pelvis. No dilated loops of small or large bowel. Assessment and Plan Plan 33-year-old female admitted due to acute diverticulitis with abscess Drainage via IR is not recommended, by radiology. Continue Flagyl and Levaquin. Continue monitoring infection. Acute diverticulitis Recurrent diverticulitis Diverticular abscess Flagyl Levaquin (Penicillin allergy) Currently this patient will be kept n.p.o. Probiotic once transition to p.o. GI following Surgical following History of hysterectomy History of uterine fibroma History of menometrorrhagia No current treatments needed No history of uterine cancer DVT prophylaxis SCDs Progress Note: Quality VTE Deep Vein Thrombosis/Pulmonary Embolism Present on Admission: No
--- NOTE | 2018-12-22 17:50 | MB ---
cc: Gris Garcia MD DATE: 12/22/2018 REFERRING PHYSICIAN: Hima Blanc MD REASON FOR CONSULTATION: Recurrent abdominal pain, diverticulitis, intra-abdominal abscess. HISTORY OF PRESENT ILLNESS: Mrs. Gallegos is a 33-year-old female with a history of recurrent abdominal pain, diverticulitis for the last 2 years. The patient developed severe abdominal pain and diverticulitis. She was admitted for further evaluation and treatment. The patient had a CT abdomen and pelvis, which showed a fluid-filled mass of 3 cm suggestive of an abscess or microperforation with abscess. The patient apparently was seen in the GI office and she was scheduled to have an endoscopy and a colonoscopy, but that was not performed yet due to her losing her insurance. PAST MEDICAL HISTORY: She has a history of hysterectomy, ADHD, anxiety, hysterectomy, tonsillectomy. ALLERGIES: GENTAMICIN, PENICILLIN, SULFA. MEDICATIONS: She is on Tylenol, milk of magnesia, [place], Levaquin, metronidazole, Zofran. MEDICATIONS AT HOME: None. SOCIAL HISTORY: She is a former smoker. Drinks alcohol 3-4 times a month. No history of drug use. REVIEW OF SYSTEMS: GENERAL: She denies any fever, chills, weight loss or weight gain. ENT: No alteration of baseline hearing or visual activity. PULMONARY: Denies any chest pain, shortness of breath. GASTROINTESTINAL: As above. GENITOURINARY: Denies dysuria or hematuria. HEMATOLOGIC: No history of anemia or bleeding disorder. SKIN: No alteration in baseline skin lesion. CLINICAL EXAMINATION: GENERAL: She is sitting comfortably in bed, in no acute distress. VITAL SIGNS: Temperature 97.9, pulse 78, respirations 20, blood pressure 102/63. HEENT: PERRLA. NECK: No JVD. No lymphadenopathy. CHEST: Clear to auscultation on palpation. CARDIOVASCULAR: S1, S2. No murmur. ABDOMEN: Soft, tender in the left lower quadrant. CENTRAL NERVOUS SYSTEM: Awake, alert, oriented x 3. No focal signs identified. LABORATORY DATA: Her hemoglobin 9.1, white count 12.6, platelets 223. Her chemistry is suggestive of a calcium of 8, AST 11, ALT 22, albumin 3.2, BUN and creatinine normal. The patient had a CT abdomen and pelvis, which showed persistent induration about the short segment of the distal descending colon with interval increase in the size of an enhancing ____ fluid collection now measuring 3 cm. This may represent a small peridiverticular abscess or conceivably an enlarged node or mass. No free fluid in the pelvis. IMPRESSION: Mrs. Gallegos is a 33-year-old lady admitted to the hospital with abdominal pain, recurrent diverticulitis, CT showing possible abscess versus mass. RECOMMENDATION: IV antibiotics. Agree with general surgery consultation. Consider repeat CT abdomen and pelvis in 1-2 days ;if enlarging abscess, may need CT-guided drainage. The patient may benefit from a colonoscopy, endoscopy once this is resolved. May have a Gastrografin enema if concern for an obstructive mass. Sedimentation rate and C-reactive protein. Supportive care. I would like to thank Dr. Blanc for referring her to our office for consultation. Further recommendation will depend on the patient's clinical status and the above results. MD HEATHER Arnold/lm/rr , 04:52 PM , 05:05 PM MIRANDA
--- NOTE | 2018-12-22 17:51 | P.CONGS ---
[facility] Gen Surgery Consult Note Consult date: 12/22/18 Reason for consult: other (Acute diverticulitis with abscess) Requesting physician: Hima Blanc Narrative: CONSULTATION NOTE FOR SURGICAL ATTENDING, DR. CHRIS GARDUNO This is a 33-year-old female with a past medical history significant for multiple episodes of acute diverticulitis over the past 18 months or so. The patient was scheduled for an outpatient colonoscopy recently but has not been able to complete it due to loss of insurance. The patient has not been seen by a surgeon. A CT abdomen/pelvis was obtained which shows a diverticular abscess. Her white blood cell count is normal. She is afebrile. IR was consulted and the abscess is not amenable to percutaneous drainage. A General Surgery consultation has been requested. Review of Systems All other systems reviewed negative except as stated in [facility] PMF - History History Provided By: Patient - Medical History Medical History: Medical History (Last Reviewed 12/22/18 @ 20:14 by Chris Garduno MD) Acute diverticulitis ADHD Anxiety History of hysterectomy - Surgical History Surgical History: Surgical History (Last Reviewed 12/22/18 @ 20:14 by Chris Garduno MD) History of tonsillectomy - Family History Family History: Family History (Last Reviewed 12/22/18 @ 20:14 by Chris Garduno MD) Other Osteoarthritis - Social History I have reviewed the patient's Social History: Yes - Tobacco History Second Hand Smoke Exposure: No Tobacco Use In Past 30 Days: No (2 months quit) Smoking Status: Former smoker Tobacco Type: Cigarettes - Alcohol History How Often Do You Have a Drink Containing Alcohol: 2 to 4 times a month - Substance Use History Substance History: No History of Abuse - Travel History Recent Travel in the [place] Within the Last 8 Weeks: Yes Recent Travel Out of the Country Within the Last 8 Weeks: No - Immunization History Tetanus Immunization: Unsure Hx Influenza Vaccine This Season: No Medications and Allergies Allergies Allergy/AdvReac Type Severity Reaction Status Date / Time gentamicin Allergy Severe Permanent Verified 12/21/18 13:52 Disability penicillin G Allergy Severe Hives Verified 12/21/18 13:52 Sulfa (Sulfonamide Allergy Severe Permanent Verified 12/21/18 13:52 Antibiotics) dijsability Penicillins Allergy Intermediate RASH Verified 12/21/18 13:52 Home Medications Medication Instructions Recorded Confirmed Type No Known Home Medications 12/21/18 12/21/18 History Active Medications: Active Medications Acetaminophen (Tylenol) 650 mg PO Q4H PRN PRN Reason: Temp greater than 101, headache Hydrocodone Bitart/Acetaminophen ([place] 5/325) 1 tab PO Q4H PRN PRN Reason: Pain 3 to 6 Hydrocodone Bitart/Acetaminophen ([place] 10/325) 1 tab PO Q4H PRN PRN Reason: Pain 7 to 10 Last Admin: 12/22/18 12:52 Dose: 1 tab Al Hydroxide/Mg Hydroxide (Milk Of Magnlela Liq) 30 ml PO Q12H PRN PRN Reason: Mild Constipation Hydromorphone HCl (Dilaudid Pf Inj) 0.5 mg IV.PUSH Q4H PRN PRN Reason: BREAKTHROUGH PAIN Sodium Chloride (Ns Inj) 1,000 mls @ 100 mls/hr IV.CONT .Q10H [facility] Last Admin: 12/22/18 12:40 Dose: 100 mls/hr Levofloxacin/Dextrose (Levaquin 750 Mg Premix Inj) 150 mls @ 100 mls/hr IV.SIG Q24H [facility] Last Infusion: 12/22/18 01:30 Dose: Infused Metronidazole/Sodium Chloride (Flagyl 500 Mg Inj) 100 mls @ 100 mls/hr IV.SIG Q8H [facility] Last Infusion: 12/22/18 09:07 Dose: Infused Ondansetron HCl (Zofran Inj) 4 mg IV.PUSH Q6H PRN PRN Reason: NAUSEA OR VOMITING Sodium Chloride (Ns Flush) 2 ml IV.FLUSH PRN PRN PRN Reason: FLUSH AFTER USING IV ACCESS Sodium Chloride (Ns Flush) 2 ml IV.FLUSH BID [facility] Last Admin: 12/22/18 09:07 Dose: Not Given Exam Vital signs: Vital Signs 12/21/18 20:00 12/21/18 21:45 12/22/18 00:00 Temperature 97.7 F 97.2 F L Pulse Rate 82 85 Respiratory Rate 16 18 16 Blood Pressure 115/81 107/80 Pulse Oximetry 100 99 12/22/18 08:00 12/22/18 08:08 12/22/18 09:29 Temperature 97.3 F L Pulse Rate 78 Respiratory Rate 20 20 20 Blood Pressure 104/69 Pulse Oximetry 100 12/22/18 12:00 12/22/18 12:52 12/22/18 15:32 Temperature 97.9 F Pulse Rate 78 Respiratory Rate 20 20 20 Blood Pressure 102/63 Pulse Oximetry 99 Intake & Output 12/21/18 12/22/18 12/22/18 18:59 06:59 18:59 Intake Total 1400 / 1400 1150 / 1150 1260 / 1260 Balance 1400 / 1400 1150 / 1150 1260 / 1260 Weight 79.8 kg 80 kg Intake: IV 1400 / 1400 1150 / 1150 1100 / 1100 NS Inj 1,000 ML @ 100 mls/hr IV 100 / 100 900 / 900 1000 / 1000 .CONT .Q10H [facility] Rx#:[id number] Cipro 400 MG/200 ML Inj 400 mg 200 / 200 In 200 ml @ 200 mls/hr IV.SIG ONCE ONE Rx#:[id number] Levaquin 750 mg Premix Inj 150 150 / 150 ML @ 100 mls/hr IV.SIG Q24H [facility] Rx#:[id number] NS Inj 1,000 ML @ Wide Open IV. 1000 / 1000 SIG BOLUS ONE Rx#:[id number] Flagyl 500 MG Inj 100 ML @ 100 100 / 100 100 / 100 100 / 100 mls/hr IV.SIG Q8H [facility] Rx#: [id number] Oral 160 / 160 Other: # Voids 1 2 2 Date of Last Bowel Movement 12/20/18 12/20/18 12/20/18 Weight On Admission 79.8 kg Narrative: GENERAL: 33 year old female resting in bed in no acute distress. SKIN: Warm and dry. She has multiple tattoos. HEAD: Atraumatic. Normocephalic. EYES: Pupils equal and round. No scleral icterus. No injection or drainage. ENT: No nasal bleeding or discharge. Mucous membranes pink and moist. NECK: Trachea midline. CARDIOVASCULAR: Regular rate and rhythm. RESPIRATORY: No accessory muscle use. Clear to auscultation. Breath sounds equal bilaterally. GASTROINTESTINAL: Abdomen soft, distended. LEFT lower quadrant/LEFT lateral pain with palpation. large tatoos on abd MUSCULOSKELETAL: Extremities without clubbing, cyanosis, or edema. No obvious deformities. NEUROLOGICAL: Awake and alert. No obvious cranial nerve deficits. Motor grossly within normal limits. Five out of 5 muscle strength in the arms and legs. Normal speech. PSYCHIATRIC: Appropriate mood and affect; insight and judgment normal. Results - Labs 12/22/18 05:13 12/22/18 05:13 Laboratory Results CBC w Diff Auto diff final 12/22/18 05:13 WBC 9.1 th/mm3 (4.0-11.0) 12/22/18 05:13 RBC 4.00 mil/mm3 (4.00-5.30) 12/22/18 05:13 Hgb 12.6 gm/dL (11.6-15.3) 12/22/18 05:13 Hct 36.8 % (35.0-46.0) 12/22/18 05:13 MCV 92.1 fL (80.0-100.0) 12/22/18 05:13 MCH 31.5 pg (27.0-34.0) 12/22/18 05:13 MCHC 34.2 % (32.0-36.0) 12/22/18 05:13 RDW 11.7 % (11.6-17.2) 12/22/18 05:13 Plt Count 224 th/mm3 (150-450) 12/22/18 05:13 MPV 9.6 fL (7.0-11.0) 12/22/18 05:13 Neut % (Auto) 66.4 % (16.0-70.0) 12/22/18 05:13 Lymph % (Auto) 24.2 % (9.0-44.0) 12/22/18 05:13 [place] % (Auto) 6.3 % (0.0-8.0) 12/22/18 05:13 Eos % (Auto) 1.2 % (0.0-4.0) 12/22/18 05:13 Baso % (Auto) 1.9 % (0.0-2.0) 12/22/18 05:13 Neut # (Auto) 6.0 th/mm3 (1.8-7.7) 12/22/18 05:13 Lymph # (Auto) 2.2 th/mm3 (1.0-4.8) 12/22/18 05:13 [place] # (Auto) 0.6 th/mm3 (0.0-0.9) 12/22/18 05:13 Eos # (Auto) 0.1 th/mm3 (0.0-0.4) 12/22/18 05:13 Baso # (Auto) 0.2 th/mm3 (0.0-0.2) 12/22/18 05:13 WBC Differential . 12/22/18 05:13 Differential Comment . 12/22/18 05:13 Sodium 140 meq/L (136-145) 12/22/18 05:13 Potassium 3.8 meq/L (3.5-5.1) 12/22/18 05:13 Chloride 107 meq/L (98-107) 12/22/18 05:13 Carbon Dioxide 28.3 meq/L (21.0-32.0) 12/22/18 05:13 Anion Gap 5 meq/L (5-15) 12/22/18 05:13 BUN 12 mg/dL (7-18) 12/22/18 05:13 Creatinine 0.77 mg/dL (0.50-1.00) 12/22/18 05:13 Estimated GFR 87 mL/min (>89) L 12/22/18 05:13 Random Glucose 83 mg/dL (74-106) 12/22/18 05:13 Calcium 8.0 mg/dL (8.5-10.1) L D 02/15/19 05:13 Magnesium 2.3 mg/dL (1.5-2.5) 12/21/18 14:46 Total Bilirubin 0.5 mg/dL (0.2-1.0) 12/22/18 05:13 AST 11 U/L (15-37) L 12/22/18 05:13 ALT 22 U/L (10-53) 12/22/18 05:13 Alkaline Phosphatase 54 U/L (45-117) 12/22/18 05:13 Total Protein 6.7 g/dL (6.4-8.2) D 12/22/18 05:13 Albumin 3.2 g/dL (3.4-5.0) L 12/22/18 05:13 Lipase 129 U/L (73-393) 12/21/18 14:46 Ur Collection Type Clean catch 12/21/18 14:49 Urine Color Yellow (Yellw/Straw) 12/21/18 14:49 Urine Clarity Cloudy (Clear) H 12/21/18 14:49 Urine pH 7.5 (5.0-8.5) 12/21/18 14:49 Ur Specific [place] 1.010 (1.002-1.035) 12/21/18 14:49 Urine Protein Negative mg/dL (Neg-Trace) 12/21/18 14:49 Urine Glucose (UA) Negative mg/dL (Negative) 12/21/18 14:49 Urine Ketones Negative mg/dL (Negative) 12/21/18 14:49 Urine Occult Blood Negative (Negative) 12/21/18 14:49 Urine Nitrate Negative (Negative) 12/21/18 14:49 Urine Bilirubin Negative (Negative) 12/21/18 14:49 Urine Urobilinogen 0.2 mg/dL (Less than 2) 12/21/18 14:49 Ur Leukocyte Esterase Negative (Negative) 12/21/18 14:49 Urine WBC 0-5 /hpf (0-5) 12/21/18 14:49 Ur Squamous Epith Cells 0-5 /hpf (0-5) 12/21/18 14:49 Amorphous Sediment Many /hpf (None) H 12/21/18 14:49 Micro UA Comment Culture not ind 12/21/18 14:49 Ur Microscopic Review Microscopic reviewed 12/21/18 14:49 Urine Culture Comments Culture not ind 12/21/18 14:49 Impressions Abdomen/Pelvis CT 12/21/18 14:27 CONCLUSION: 1. Persistent induration about the short segment of distal descending colon with interval increase in the size of a enhancing thin wall adjacent fluid collection, now measuring 3 cm. This may represent a small peridiverticular abscess, or conceivably a enlarged node or mass. 2. No free fluid in the pelvis. No dilated loops of small or large bowel. - Imaging Imaging: ITS Impressions Abdomen/Pelvis CT 12/21/18 14:27 CONCLUSION: 1. Persistent induration about the short segment of distal descending colon with interval increase in the size of a enhancing thin wall adjacent fluid collection, now measuring 3 cm. This may represent a small peridiverticular abscess, or conceivably a enlarged node or mass. 2. No free fluid in the pelvis. No dilated loops of small or large bowel. CT scan - abdomen: image reviewed Assessment and Plan - Assessment (1) Colonic diverticular abscess Code(s): K57.20 - Diverticulitis of large intestine with perforation and abscess without bleeding Status: Acute - Plan 33 year old female with acute diverticulitis with abscess -Abscess not able to be drained by IR -Will repeat CT scan tomorrow -Continue IV antibiotics -GI following -Recommend continuing liquid diet for now -Recommended outpatient colonoscopy once infection cools off -Will need sigmoid resection ---best case scenario is to let the infection cool off before surgery. Explained the role of waiting for surgery to have best chance at avoiding a colonoscopy -All questions were answered -Thank you for this consult; We will continue to follow Discussed Condition With: Dr. Laureen Gallegos - Attending Attestation CONSULTATION NOTE FOR SURGICAL ATTENDING, DR. CHRIS GARDUNO I agree with above assessment and plan. The exam, history, and the medical decision-making described in the above note were completed with the assistance of the mid-level provider. I reviewed and agree with the findings presented. I attest that I had a [id number] encounter with the patient on the same day, and personally performed and documented my assessment and findings in the medical record. The following services were provided during this hospital visit: Chart data review, vital sign assessments/reviewing monitor data Review of consultations notes if present. Medication orders/review and/or management Ordering and/or reviewing lab tests Ordering and/or interpreting/reviewing x-rays and/or diagnostic studies Care of the patient and discussion of the patient with the care team Documentation time To help prompt me to consider important information that might be impacting today's encounter and assessment, Information from prior notes written by myself or my colleagues may have been "brought forward/copy and pasted" into today's note.
[2018-12-22] MEDS ORDERED: Diatrizoate Meglum/Diatrizoate Sod Liq 9 ML UDC PO ONE (19:36)
[2018-12-23] MEDS: Sod Chloride 0.9% Inj 1,000 ML IV.CONT SCH ×2 (06:32→15:24)
[2018-12-23] MEDS ORDERED: Diatrizoate Meglum/Diatrizoate Sod Liq 9 ML UDC PO ONE (08:45)
--- NOTE | 2018-12-23 11:12 | P.PNGS ---
Subjective Patient reports: feels better (Still having pain left side of abdomen but better than 2 days ago. She is drinking her contrast for her repeat CT scan today. She has no nausea or vomiting. She has passed flatus.), flatus Physical Exam Vital signs: Vital Signs 12/22/18 12:00 12/22/18 12:52 12/22/18 15:32 Temperature 97.9 F Pulse Rate 78 Respiratory Rate 20 20 20 Blood Pressure 102/63 Pulse Oximetry 99 12/22/18 16:00 12/22/18 17:47 12/22/18 18:19 Temperature 98.4 F Pulse Rate 73 Respiratory Rate 20 20 20 Blood Pressure 92/63 L Pulse Oximetry 98 12/22/18 20:00 12/22/18 23:11 12/23/18 00:00 Temperature 97.9 F 98.8 F Pulse Rate 82 89 Respiratory Rate 16 18 18 Blood Pressure 111/75 95/50 L Pulse Oximetry 99 97 Intake & Output 12/22/18 12/23/18 12/23/18 18:59 06:59 18:59 Intake Total 1979 2350 / 2350 100 / 100 Balance 1979 2350 / 2350 100 / 100 Weight 81.7 kg Intake: IV 1100 / 1100 2350 / 2350 100 / 100 NS Inj 1,000 ML @ 100 mls/hr IV 1000 / 1000 1999 / 1999 .CONT .Q10H [facility] Rx#:[id number] Levaquin 750 mg Premix Inj 150 150 / 150 ML @ 100 mls/hr IV.SIG Q24H [facility] Rx#:[id number] Flagyl 500 MG Inj 100 ML @ 100 100 / 100 200 / 200 100 / 100 mls/hr IV.SIG Q8H [facility] Rx#: [id number] Oral 880 / 880 Other: # Voids 4 3 Date of Last Bowel Movement 12/20/18 12/20/18 Narrative: She is awake and alert and oriented. She does not appear in acute pain. Her abdominal exam shows a soft nondistended abdomen though she says she feels bloated. She does have tenderness in the left lateral mid abdomen without rebound or guarding. Her extremities are nonedematous. Results - Labs 12/22/18 05:13 12/22/18 05:13 - Imaging Imaging: ITS Impressions Abdomen/Pelvis CT 12/21/18 14:27 CONCLUSION: 1. Persistent induration about the short segment of distal descending colon with interval increase in the size of a enhancing thin wall adjacent fluid collection, now measuring 3 cm. This may represent a small peridiverticular abscess, or conceivably a enlarged node or mass. 2. No free fluid in the pelvis. No dilated loops of small or large bowel. Assessment and Plan - Assessment (1) Colonic diverticular abscess Code(s): K57.20 - Diverticulitis of large intestine with perforation and abscess without bleeding Status: Acute - Plan She is for repeat CT abdomen and pelvis today to evaluate the descending colonic fluid collection. She desires, and we desire for her to achieve resolution of her acute inflammatory condition so that she can have a surgery where the area of the colon involved can be resected and a primary anastomosis can be performed, ultimately avoiding a colostomy. If she has not had complete evaluation of her colon via colonoscopy or barium enema this would be ideal before surgical resection., Her current situation, does not warrant emergent surgical intervention.
--- NOTE | 2018-12-23 11:41 | P.PNIM ---
Subjective Interval history: Slight improvement in pain today. Repeat CT plan today. No new complaints from patient. Physical Exam Vital signs: Vital Signs 12/22/18 12:00 12/22/18 12:52 12/22/18 15:32 Temperature 97.9 F Pulse Rate 78 Respiratory Rate 20 20 20 Blood Pressure 102/63 Pulse Oximetry 99 12/22/18 16:00 12/22/18 17:47 12/22/18 18:19 Temperature 98.4 F Pulse Rate 73 Respiratory Rate 20 20 20 Blood Pressure 92/63 L Pulse Oximetry 98 12/22/18 20:00 12/22/18 23:11 12/23/18 00:00 Temperature 97.9 F 98.8 F Pulse Rate 82 89 Respiratory Rate 16 18 18 Blood Pressure 111/75 95/50 L Pulse Oximetry 99 97 Intake & Output 12/22/18 12/23/18 12/23/18 18:59 06:59 18:59 Intake Total 1979 2350 / 2350 100 / 100 Balance 1979 2350 / 2350 100 / 100 Weight 81.7 kg Intake: IV 1100 / 1100 2350 / 2350 100 / 100 NS Inj 1,000 ML @ 100 mls/hr IV 1000 / 1000 2000 / 2000 .CONT .Q10H [facility] Rx#:[id number] Levaquin 750 mg Premix Inj 150 150 / 150 ML @ 100 mls/hr IV.SIG Q24H [facility] Rx#:[id number] Flagyl 500 MG Inj 100 ML @ 100 100 / 100 200 / 200 100 / 100 mls/hr IV.SIG Q8H [facility] Rx#: [id number] Oral 880 / 880 Other: # Voids 4 3 Date of Last Bowel Movement 12/20/18 12/20/18 Narrative: GENERAL: NAD, A&Ox3 HEAD: Normocephalic. NECK: Supple, trachea midline. No lymphadenopathy. EYES: No scleral icterus. No injection or drainage. CARDIOVASCULAR: Regular rate and rhythm without murmurs, gallops, or rubs. RESPIRATORY: Breath sounds equal bilaterally. No accessory muscle use. GASTROINTESTINAL: Abdomen soft, nondistended. Left lower quadrant abdominal tenderness MUSCULOSKELETAL: No cyanosis, or edema. SKIN: Warm and dry. NEURO: No focal neurological deficits. Results Labs CBC & Chem 7: 12/22/18 05:13 12/22/18 05:13 Assessment and Plan (1) Colonic diverticular abscess: Code(s): K57.20 - Diverticulitis of large intestine with perforation and abscess without bleeding Status: Acute Plan 33-year-old female admitted due to acute diverticulitis with abscess If repeat CT shows increasing abscess size drainage will be considered. Drain via IR is not recommended, by radiology recurrent 3 cm fluid collection. Continue Flagyl and Levaquin. Continue monitoring infection. Acute diverticulitis Recurrent diverticulitis Diverticular abscess Flagyl Levaquin (Penicillin allergy) Currently this patient will be kept n.p.o. Probiotic once transition to p.o. GI following Surgical following History of hysterectomy History of uterine fibroma History of menometrorrhagia No current treatments needed No history of uterine cancer DVT prophylaxis SCDs Progress Note: Quality VTE Deep Vein Thrombosis/Pulmonary Embolism Present on Admission: No
--- NOTE | 2018-12-23 14:45 | CT ---
EXAM DATE: 12/23/2018 2:40 PM EST AGE/SEX: 33 years / Female INDICATIONS: Abdomen pain , Diverticulitis with abscess left lower abdomen per patient CLINICAL DATA: This is the patient's subsequent encounter. Patient reports that signs and symptoms h ave been present for 2 days and indicates a pain score of 6/10. MEDICAL/SURGICAL HISTORY: Diverticulitis. Hysterectomy. Tonsillectomy. ORAL CONTRAST: Prescribed oral contrast ingested. RADIATION DOSE: 13.15 CTDI (mGy) COMPARISON: [facility], CT ABDOMEN & PELVIS W CONTRAST, 12/21/2018. . TECHNIQUE: Multiple contiguous axial images were obtained through the abdomen and pelvis following b olus infusion of 97ML ml Omnipaque 350 (iohexol) nonionic water-soluble contrast as a single exam d ose. Prescribed oral contrast ingested. Using automated exposure control and adjustment of the mA an d/or kV according to patient size, radiation dose was kept as low as reasonably achievable to obtain optimal diagnostic quality images. DICOM format image data is available electronically for review an d comparison. FINDINGS: Lower Lungs: The visualized lower lungs are clear. Liver: The liver has a homogeneous density without space-occupying lesion. There is no dilation of th e biliary tree. Spleen: Homogeneous density without enlargement. Pancreas: Unremarkable without mass or calcification. Kidneys: Normal in size and shape. No evidence of mass or hydronephrosis. Adrenal Glands: Unremarkable. Aorta: The aorta and proximal iliac vessels are grossly unremarkable without aneurysmal dilation. Bowel/Mesentery: Diverticulitis with inflammatory changes of the descending colon with small pericol onic fluid collection/diverticular abscess. This measures 4.0 x 2.4 cm Abdominal Wall: Intact. Retroperitoneum: No evidence of adenopathy in the retrocrural, para-aortic, or deep pelvic regions. Bladder: Contours are smooth. Reproductive Organs: No abnormal masses or calcifications seen. Inguinal: The inguinal region is unremarkable without evidence of adenopathy. Bony Structures: Unremarkable. CONCLUSION: 1. Diverticulitis with diverticular abscess measuring 4.0 x 2.4 cm. This is slightly more prominent from previous study. Electronically signed by: Ruperto Adhikari MD Board Certified Radiologist 12/23/2018 2:43 PM EST
[2018-12-24] MEDS: HYDROmorphone PF Inj 0.5 MG/0.5 ML Syringe IV.PUSH PRN ×2 (02:01→06:17)
[2018-12-24] MEDS: Sod Chloride 0.9% Inj 1,000 ML IV.CONT SCH ×4 (04:57→23:58)
[2018-12-24 07:07] LABS: Chloride 107 meq/L (98-107); Potassium 3.7 meq/L (3.5-5.1); Sodium 139 meq/L (136-145)
[2018-12-24 07:10] LABS: Calcium 8.1 mg/dL (8.5-10.1)
[2018-12-24 07:11] LABS: Albumin 3.2 g/dL (3.4-5.0); Anion Gap 5 meq/L (5-15); Baso % (Auto) 0.7 % (0.0-2.0); Blood Urea Nitrogen 7 mg/dL (7-18); Carbon Dioxide 27.3 meq/L (21.0-32.0); Eos # (Auto) 0.1 th/mm3 (0.0-0.4); Eos % (Auto) 1.7 % (0.0-4.0); Glucose,Random 88 mg/dL (74-106); Hematocrit 36.4 % (35.0-46.0); Hemoglobin 12.6 gm/dL (11.6-15.3); Mean Corpuscular HGB Conc 34.7 % (32.0-36.0); Mean Corpuscular Volume 92.1 fL (80.0-100.0); Mono # (Auto) 0.5 th/mm3 (0.0-0.9); Neut # (Auto) 3.6 th/mm3 (1.8-7.7); Neut % (Auto) 56.6 % (16.0-70.0); Platelet Count 230 th/mm3 (150-450); Red Blood Count 3.96 mil/mm3 (4.00-5.30); Red Cell Distribution Width 11.3 % (11.6-17.2); White Blood Count 6.2 th/mm3 (4.0-11.0)
[2018-12-24 07:14] LABS: Alanine Aminotransferase 18 U/L (10-53); Aspartate Aminotransferase 11 U/L (15-37); Glomerular Filtration Rate Greater Than 89 mL/min (>89)
[2018-12-24 07:15] LABS: Total Protein 7.1 g/dL (6.4-8.2)
[2018-12-24 07:17] LABS: Alkaline Phosphatase 54 U/L (45-117)
--- NOTE | 2018-12-24 16:36 | P.PNIM ---
Subjective Interval history: Increase in size of abscess from 3 cm to 4 cm based on last CT scan. Potential need for surgical intervention with likely colectomy. Alternative would be radiological intervention. Situation discussed with the patient. Physical Exam Vital signs: Vital Signs 12/23/18 20:00 12/24/18 00:00 12/24/18 08:00 Temperature 98.0 F 98.0 F 97.3 F L Pulse Rate 74 79 92 H Respiratory Rate 18 18 24 Blood Pressure 110/78 114/75 103/59 L Pulse Oximetry 98 99 98 12/24/18 11:00 12/24/18 12:00 Temperature 97.1 F L Pulse Rate 76 Respiratory Rate 16 24 Blood Pressure 105/64 Pulse Oximetry 95 Intake & Output 12/23/18 12/24/18 12/24/18 18:59 06:59 18:59 Intake Total 2040 / 2040 2250 / 2250 100 / 100 Balance 2040 / 2040 2250 / 2250 100 / 100 Weight 80.8 kg Intake: IV 1200 / 1200 2250 / 2250 100 / 100 NS Inj 1,000 ML @ 100 mls/hr IV 1000 / 1000 2000 / 2000 .CONT .Q10H [facility] Rx#:[id number] Levaquin 750 mg Premix Inj 150 150 / 150 ML @ 100 mls/hr IV.SIG Q24H [facility] Rx#:[id number] Flagyl 500 MG Inj 100 ML @ 100 200 / 200 100 / 100 100 / 100 mls/hr IV.SIG Q8H [facility] Rx#: [id number] Oral 840 / 840 Other: # Voids 3 4 Date of Last Bowel Movement 12/20/18 12/20/18 12/24/18 Narrative: GENERAL: NAD, A&Ox3 HEAD: Normocephalic. NECK: Supple, trachea midline. No lymphadenopathy. EYES: No scleral icterus. No injection or drainage. CARDIOVASCULAR: Regular rate and rhythm without murmurs, gallops, or rubs. RESPIRATORY: Breath sounds equal bilaterally. No accessory muscle use. GASTROINTESTINAL: Abdomen soft, nondistended. Left lower quadrant abdominal tenderness MUSCULOSKELETAL: No cyanosis, or edema. SKIN: Warm and dry. NEURO: No focal neurological deficits. Results Labs CBC & Chem 7: 12/24/18 06:38 12/24/18 06:38 Assessment and Plan (1) Colonic diverticular abscess: Code(s): K57.20 - Diverticulitis of large intestine with perforation and abscess without bleeding Status: Acute Plan 33-year-old female admitted due to acute diverticulitis with abscess Surgical intervention versus IR intervention. IR consulted will provide input tomorrow morning. Surgery following and plans for resection of the sigmoid colon with likely colectomy if IR options are not present. Continue pain treatment. Continue monitoring CBC and BMP. N.p.o. after midnight. Acute diverticulitis Recurrent diverticulitis Diverticular abscess Flagyl Levaquin (Penicillin allergy) Currently this patient will be kept n.p.o. Probiotic once transition to p.o. GI following Surgical following History of hysterectomy History of uterine fibroma History of menometrorrhagia No current treatments needed No history of uterine cancer DVT prophylaxis SCDs Progress Note: Quality VTE Deep Vein Thrombosis/Pulmonary Embolism Present on Admission: No
--- NOTE | 2018-12-24 17:04 | P.PN ---
Subjective Interval history: Still quite painful; states she now has pain on the left side of the abdomen near the flank. Physical Exam Vital signs: Vital Signs 12/23/18 20:00 12/24/18 00:00 12/24/18 08:00 Temperature 98.0 F 98.0 F 97.3 F L Pulse Rate 74 79 92 H Respiratory Rate 18 18 24 Blood Pressure 110/78 114/75 103/59 L Pulse Oximetry 98 99 98 12/24/18 11:00 12/24/18 12:00 12/24/18 16:00 Temperature 97.1 F L 97.8 F Pulse Rate 76 70 Respiratory Rate 16 24 22 Blood Pressure 105/64 108/70 Pulse Oximetry 95 99 Intake & Output 12/23/18 12/24/18 12/24/18 18:59 06:59 18:59 Intake Total 2040 / 2040 2250 / 2250 100 / 100 Balance 2040 / 2040 2250 / 2250 100 / 100 Weight 80.8 kg Intake: IV 1200 / 1200 2250 / 2250 100 / 100 NS Inj 1,000 ML @ 100 mls/hr IV 1000 / 1000 2000 / 2000 .CONT .Q10H [facility] Rx#:[id number] Levaquin 750 mg Premix Inj 150 150 / 150 ML @ 100 mls/hr IV.SIG Q24H [facility] Rx#:[id number] Flagyl 500 MG Inj 100 ML @ 100 200 / 200 100 / 100 100 / 100 mls/hr IV.SIG Q8H [facility] Rx#: [id number] Oral 840 / 840 Other: # Voids 3 4 Date of Last Bowel Movement 12/20/18 12/20/18 12/24/18 - Constitutional mild distress - Routine Abdominal Exam Present: soft, tenderness (Left lower quadrant, left mid abdomen, suprapubic area, left lateral abdominal wall), guarding Results - Labs CBC & Chem 7: 12/24/18 06:38 12/24/18 06:38 Laboratory Results - last 24 hr 12/24/18 12/24/18 06:38 06:38 CBC w Diff Auto diff final WBC 6.2 RBC 3.96 L Hgb 12.6 Hct 36.4 MCV 92.1 MCH 32.0 MCHC 34.7 RDW 11.3 L Plt Count 230 MPV 9.0 Neut % (Auto) 56.6 Lymph % (Auto) 33.0 [place] % (Auto) 8.0 Eos % (Auto) 1.7 Baso % (Auto) 0.7 Neut # (Auto) 3.6 Lymph # (Auto) 2.0 [place] # (Auto) 0.5 Eos # (Auto) 0.1 Baso # (Auto) 0.0 WBC Differential . Differential Comment . Sodium 139 Potassium 3.7 Chloride 107 Carbon Dioxide 27.3 Anion Gap 5 BUN 7 Creatinine 0.68 Estimated GFR Greater than 89 Random Glucose 88 Calcium 8.1 L Total Bilirubin 0.5 AST 11 L ALT 18 Alkaline Phosphatase 54 Total Protein 7.1 Albumin 3.2 L Assessment and Plan - Assessment (1) Colonic diverticular abscess Code(s): K57.20 - Diverticulitis of large intestine with perforation and abscess without bleeding Status: Acute Plan: Abscess increased in size. Pain is the same or worse than 2 days ago. Will have IR evaluate current abscess and determine whether percutaneous drainage would be possible now that it is increased in size. If not, she will require operative intervention including colostomy. Patient vocalizes understanding of this as I explained this to her in detail. There is still a possibility that she could be put back together if her colon is prepped and both ends appear without any inflammation whatsoever. - Plan Discussed Condition With: Patient - Attending Attestation I attest that I had a [id number] encounter with the patient on the same day, and personally performed and documented my assessment and findings in the medical record. The following services were provided during this hospital visit: Chart data review, vital sign assessments/reviewing monitor data Review of consultation notes if present Medication orders/review and/or management Ordering and/or reviewing lab tests Ordering and/or interpreting/reviewing x-rays and/or diagnostic studies Care of the patient and discussion of the patient with the care team Documentation time To help prompt me to consider important information that might be impacting today's encounter and assessment, Information from prior notes written by myself or my colleagues may have been "brought forward/copy and pasted" into today's note.
[2018-12-25 07:25] LABS: Baso % (Auto) 0.7 % (0.0-2.0); Eos # (Auto) 0.1 th/mm3 (0.0-0.4); Eos % (Auto) 2.2 % (0.0-4.0); Hematocrit 38.4 % (35.0-46.0); Hemoglobin 13.2 gm/dL (11.6-15.3); Lymph % (Auto) 36.7 % (9.0-44.0); Mean Corpuscular HGB Conc 34.3 % (32.0-36.0); Mean Corpuscular Hemoglobin 31.8 pg (27.0-34.0); Mean Corpuscular Volume 92.6 fL (80.0-100.0); Mean Platelet Volume 9.9 fL (7.0-11.0); Mono # (Auto) 0.5 th/mm3 (0.0-0.9); Neut # (Auto) 2.8 th/mm3 (1.8-7.7); Neut % (Auto) 51.4 % (16.0-70.0); Platelet Count 253 th/mm3 (150-450); Red Blood Count 4.14 mil/mm3 (4.00-5.30); Red Cell Distribution Width 12.4 % (11.6-17.2); White Blood Count 5.5 th/mm3 (4.0-11.0)
[2018-12-25 08:09] LABS: Albumin 3.3 g/dL (3.4-5.0); Anion Gap 6 meq/L (5-15); Aspartate Aminotransferase 21 U/L (15-37); Blood Urea Nitrogen 8 mg/dL (7-18); Calcium 8.3 mg/dL (8.5-10.1); Carbon Dioxide 28.1 meq/L (21.0-32.0); Chloride 109 meq/L (98-107); Glomerular Filtration Rate Greater Than 89 mL/min (>89); Glucose,Random 81 mg/dL (74-106); Potassium 3.9 meq/L (3.5-5.1); Sodium 143 meq/L (136-145)
[2018-12-25 08:12] LABS: Alanine Aminotransferase 26 U/L (10-53); Alkaline Phosphatase 52 U/L (45-117)
[2018-12-25] MEDS: HYDROmorphone PF Inj 0.5 MG/0.5 ML Syringe IV.PUSH PRN ×2 (10:26→20:49)
--- NOTE | 2018-12-25 10:53 | P.PNGI ---
Subjective Interval history: Patient awake and alert Visitor at bedside Patient reports left lower quadrant abdominal pain radiating across lower abdomen Physical Exam Vital signs: Vital Signs 12/24/18 11:00 12/24/18 12:00 12/24/18 16:00 Temperature 97.1 F L 97.8 F Pulse Rate 76 70 Respiratory Rate 16 24 22 Blood Pressure 105/64 108/70 Pulse Oximetry 95 99 12/24/18 20:00 12/25/18 00:00 12/25/18 04:00 Temperature 98.0 F 98.1 F 98.2 F Pulse Rate 81 83 87 Respiratory Rate 18 18 18 Blood Pressure 117/74 102/62 105/59 L Pulse Oximetry 97 97 98 12/25/18 08:00 Temperature 98 F Pulse Rate 72 Respiratory Rate 17 Blood Pressure 113/71 Pulse Oximetry 99 Intake & Output 12/24/18 12/25/18 12/25/18 18:59 06:59 18:59 Intake Total 1200 / 1200 1450 / 1450 100 / 100 Balance 1200 / 1200 1450 / 1450 100 / 100 Weight 80.7 kg Intake: IV 1200 / 1200 1250 / 1250 100 / 100 NS Inj 1,000 ML @ 80 mls/hr IV. 1000 / 1000 1000 / 1000 CONT .[id number] [facility] Rx#: [id number] Levaquin 750 mg Premix Inj 150 150 / 150 ML @ 100 mls/hr IV.SIG Q24H [facility] Rx#:[id number] Flagyl 500 MG Inj 100 ML @ 100 200 / 200 100 / 100 100 / 100 mls/hr IV.SIG Q8H [facility] Rx#: [id number] Oral 200 / 200 Other: # Voids 1 3 Date of Last Bowel Movement 12/24/18 - Constitutional cooperative - Routine HEENT Exam Head: Present: normocephalic - Routine Respiratory Exam Present: CTA bilaterally. Absent: accessory muscle use - Routine Cardiovascular Exam Present: RRR, S1, S2 - Routine Abdominal Exam Present: soft, normoactive bowel sounds, tenderness. Absent: distended, firm - Routine Skin Exam Present: dry, warm - Routine Neurological Exam Present: alert, oriented X3 Results - Labs CBC & Chem 7: 12/25/18 06:25 12/25/18 06:25 Laboratory Results - last 24 hr 12/25/18 12/25/18 06:25 06:25 WBC 5.5 RBC 4.14 Hgb 13.2 Hct 38.4 MCV 92.6 MCH 31.8 MCHC 34.3 RDW 12.4 Plt Count 253 MPV 9.9 Neut % (Auto) 51.4 Lymph % (Auto) 36.7 [place] % (Auto) 9.0 H Eos % (Auto) 2.2 Baso % (Auto) 0.7 Neut # (Auto) 2.8 Lymph # (Auto) 2.0 [place] # (Auto) 0.5 Eos # (Auto) 0.1 Baso # (Auto) 0.0 WBC Differential . Differential Comment Auto diff final Sodium 143 Potassium 3.9 Chloride 109 H Carbon Dioxide 28.1 Anion Gap 6 BUN 8 Creatinine 0.70 Estimated GFR Greater than 89 Random Glucose 81 Calcium 8.3 L Total Bilirubin 0.3 AST 21 ALT 26 Alkaline Phosphatase 52 Total Protein 7.0 Albumin 3.3 L Assessment and Plan (1) Colonic diverticular abscess Status: Acute Code(s): K57.20 - Diverticulitis of large intestine with perforation and abscess without bleeding - Plan 12/25/2018 Diverticulitis of large intestine, abscess formation without bleeding Patient reporting left sided abdominal pain radiating across lower abdomen to the right lower quadrant 12/23/2018 CT abdomen and Pelvis : Diverticulitis with diverticular abscess measuring 4.0 x 2.4 cm. This is slightly more prominent from previous study. WBC 5.5 hemoglobin 13.2 hematocrit 38.4 Patient afebrile Plan -N.p.o. -General surgery following -Plan for drainage of abscess by interventional radiology -PT/INR -Monitor CBC -Continue IV antibiotic therapy -IV hydration -Bowel regimen -Supportive care -GI will sign off at this time, surgery following. Please notify for any further assistance This patient has been seen by myself and Dr. Baxter and this note is written on his behalf - Attending Attestation Dr. Baxter
[2018-12-25 12:58] LABS: INR 1.2 Ratio; Prothrombin Time 11.9 sec (9.8-11.6)
[2018-12-25] MEDS: Sod Chloride 0.9% Inj 1,000 ML IV.CONT SCH (13:00)
--- NOTE | 2018-12-25 13:54 | P.PNGS ---
Subjective Patient reports: still having pain, flatus, bowel movement Interval history: DAILY PROGRESS NOTE FOR SURGICAL ATTENDING, DR. MJ RANDOLPH Still having some pain Physical Exam Vital signs: Vital Signs 12/24/18 16:00 12/24/18 20:00 12/25/18 00:00 Temperature 97.8 F 98.0 F 98.1 F Pulse Rate 70 81 83 Respiratory Rate 22 18 18 Blood Pressure 108/70 117/74 102/62 Pulse Oximetry 99 97 97 12/25/18 04:00 12/25/18 08:00 Temperature 98.2 F 98 F Pulse Rate 87 72 Respiratory Rate 18 17 Blood Pressure 105/59 L 113/71 Pulse Oximetry 98 99 Intake & Output 12/24/18 12/25/18 12/25/18 18:59 06:59 18:59 Intake Total 1200 / 1200 1450 / 1450 100 / 100 Balance 1200 / 1200 1450 / 1450 100 / 100 Weight 80.7 kg Intake: IV 1200 / 1200 1250 / 1250 100 / 100 NS Inj 1,000 ML @ 80 mls/hr IV. 1000 / 1000 1000 / 1000 CONT .[id number] [facility] Rx#: [id number] Levaquin 750 mg Premix Inj 150 150 / 150 ML @ 100 mls/hr IV.SIG Q24H [facility] Rx#:[id number] Flagyl 500 MG Inj 100 ML @ 100 200 / 200 100 / 100 100 / 100 mls/hr IV.SIG Q8H [facility] Rx#: [id number] Oral 200 / 200 Other: # Voids 1 3 Date of Last Bowel Movement 12/24/18 Narrative: She is awake and alert and oriented. Her abdominal exam shows a soft nondistended abdomen though she says she feels bloated. Pain in the left side of her abdomen flank area She does have tenderness in the left lateral mid abdomen without rebound or guarding. Her extremities are nonedematous. Results - Labs 12/25/18 06:25 12/25/18 06:25 Laboratory Results - last 24 hr 12/25/18 12/25/18 12/25/18 06:25 06:25 12:30 WBC 5.5 RBC 4.14 Hgb 13.2 Hct 38.4 MCV 92.6 MCH 31.8 MCHC 34.3 RDW 12.4 Plt Count 253 MPV 9.9 Neut % (Auto) 51.4 Lymph % (Auto) 36.7 [place] % (Auto) 9.0 H Eos % (Auto) 2.2 Baso % (Auto) 0.7 Neut # (Auto) 2.8 Lymph # (Auto) 2.0 [place] # (Auto) 0.5 Eos # (Auto) 0.1 Baso # (Auto) 0.0 WBC Differential . Differential Comment Auto diff final PT 11.9 H INR 1.2 Sodium 143 Potassium 3.9 Chloride 109 H Carbon Dioxide 28.1 Anion Gap 6 BUN 8 Creatinine 0.70 Estimated GFR Greater than 89 Random Glucose 81 Calcium 8.3 L Total Bilirubin 0.3 AST 21 ALT 26 Alkaline Phosphatase 52 Total Protein 7.0 Albumin 3.3 L - Imaging Imaging: ITS Impressions Abdomen/Pelvis CT 12/23/18 00:00 CONCLUSION: 1. Diverticulitis with diverticular abscess measuring 4.0 x 2.4 cm. This is slightly more prominent from previous study. Additional studies: I reviewed the radiologic imaging with Dr. Flores and Dr. Ramses Malone They both agreed that they will attempt to aspirate this abscess/fluid collection in the left side of her abdomen They do not think they can fit a drain in the small fluid collection Assessment and Plan - Assessment (1) Colonic diverticular abscess Code(s): K57.20 - Diverticulitis of large intestine with perforation and abscess without bleeding Status: Acute - Plan 33 year old female with acute diverticulitis with abscess -She is going down today for IR drainage of this abscess. We will follow clinically hopefully get her over this acute event and schedule outpatient resection at a later date to hopefully prevent having to perform colostomy - Attending Attestation NOTE FOR SURGICAL ATTENDING, DR. MJ RANDOLPH I attest that I had a [id number] encounter with the patient on the same day, and personally performed and documented my assessment and findings in the medical record. The following services were provided during this hospital visit: Chart data review, vital sign assessments/reviewing monitor data Review of consultations notes if present. Medication orders/review and/or management Ordering and/or reviewing lab tests Ordering and/or interpreting/reviewing x-rays and/or diagnostic studies Care of the patient and discussion of the patient with the care team Documentation time To help prompt me to consider important information that might be impacting today's encounter and assessment, Information from prior notes written by myself or my colleagues may have been "brought forward/copy and pasted" into today's note.
[2018-12-25] MEDS ORDERED: fentaNYL Citrate Inj 250 MCG/5 ML Ampul ONE (14:10)
--- NOTE | 2018-12-25 15:02 | P.RAD ---
Post Procedure Progress Note - Pre Procedure Diagnosis (1) Colonic diverticular abscess - Post Procedure Diagnosis (1) Colonic diverticular abscess - Procedure Information Procedure Date: 12/25/18 Supervising Radiologist: Hima Malone MD Estimated blood loss (mL): 0 Anesthesia: Local, Conscious Sedation - Plan of Activity Patient to Unit: [facility] Patient Condition: Good Additional Comments: 18ga. needle placed into the left abdominal collection. 8-10cc of serous fluid drained. sample sent for culture and sensitivity. Full report to follow. See PACS Report for procedural detail/treatment.
--- NOTE | 2018-12-25 15:31 | P.PNIM ---
Subjective Interval history: Patient still has some abd pain. no other complaints from the patient. Physical Exam Vital signs: Vital Signs 12/24/18 16:00 12/24/18 20:00 12/25/18 00:00 Temperature 97.8 F 98.0 F 98.1 F Pulse Rate 70 81 83 Respiratory Rate 18 18 Blood Pressure 108/70 117/74 102/62 Pulse Oximetry 99 97 97 12/25/18 04:00 12/25/18 08:00 12/25/18 12:00 Temperature 98.2 F 98 F 98.2 F Pulse Rate 87 72 52 L Respiratory Rate 18 17 Blood Pressure 105/59 L 113/71 103/70 Pulse Oximetry 98 99 98 Intake & Output 12/24/18 12/25/18 12/25/18 18:59 06:59 18:59 Intake Total 1200 / 1200 1450 / 1450 100 / 100 Balance 1200 / 1200 1450 / 1450 100 / 100 Weight 80.7 kg Intake: IV 1200 / 1200 1250 / 1250 100 / 100 NS Inj 1,000 ML @ 80 mls/hr IV. 1000 / 1000 1000 / 1000 CONT .[id number] [facility] Rx#: [id number] Levaquin 750 mg Premix Inj 150 150 / 150 ML @ 100 mls/hr IV.SIG Q24H [facility] Rx#:[id number] Flagyl 500 MG Inj 100 ML @ 100 200 / 200 100 / 100 100 / 100 mls/hr IV.SIG Q8H [facility] Rx#: [id number] Oral 200 / 200 Other: # Voids 1 3 Date of Last Bowel Movement 12/24/18 Narrative: EOMI S1S2 CTA b/l abd soft, complains of abd pain, bowel sounds positive No edema of exts Results Labs CBC & Chem 7: 12/25/18 06:25 12/25/18 06:25 Assessment and Plan (1) Colonic diverticular abscess: Code(s): K57.20 - Diverticulitis of large intestine with perforation and abscess without bleeding Status: Acute Abscess increased in size. Pain is the same or worse than 2 days ago. Will have IR evaluate current abscess and determine whether percutaneous drainage would be possible now that it is increased in size. If not, she will require operative intervention including colostomy. Patient vocalizes understanding of this as I explained this to her in detail. There is still a possibility that she could be put back together if her colon is prepped and both ends appear without any inflammation whatsoever. Plan This patient is a 33 y/o F who was admitted with acute diverticulitis with abscess. 1. Acute Diverticulitis with diverticular abscess Patient afebrile overnight On IV antibiotics, Flagyl and Levaquin. Patient has PCN allergy. Surgery and IR following the patient. She is s/p drainage of the fluid collection. 10cc of serious fluid drained and sent for cx and sensitivity. ID will be consulted. Will follow up the results. 2. Hx of Hysterectomy 3. Hx of Uterine Fibroma 4. Hx of Menometrorrhagia Stable, no need for any urgent intervention. SCDs for Dvt prophylaxis. Progress Note: Quality VTE Deep Vein Thrombosis/Pulmonary Embolism Present on Admission: No
--- NOTE | 2018-12-25 18:58 | MB ---
cc: Owen Pagan MD DATE: 12/25/2018 REQUESTING PHYSICIAN: Melonie Chin MD REASON: Diverticular abscess. HISTORY OF PRESENT ILLNESS: This is a 33-year-old white female who has had history of multiple episodes of acute diverticulitis. The patient presented to emergency department with abdominal pain and was admitted on 12/21/2018. She presented with left-sided lower abdominal pain/burning. Her white count was normal and she was afebrile. She was evaluated and CT scan of the abdomen and pelvis showed persistent induration above the short segment of distal descending colon with increasing size of an enhancing thin wall and adjacent fluid collection, likely representing a peridiverticular abscess. The patient underwent needle aspiration of the fluid collection today. Culture is pending. This consultation is requested for antibiotic management. She is currently on levofloxacin and metronidazole. The patient tells me that she has been treated with oral antibiotics before. She was due to have GI workup, but lost her insurance and was not able to have the workup before this admission. The patient denies chills. She states that she is always hot. She states that the appetite has been poor over the past couple of days. PAST MEDICAL HISTORY: Hysterectomy due to fibroids, anxiety, ADHD, tonsillectomy. ALLERGIES: PENICILLIN, GENTAMICIN, SULFA. MEDICATIONS: 1. Levaquin. 2. Metronidazole. 3. Dilaudid. 4. [place] 10 mg p.r.n. SOCIAL HISTORY: Former smoker. Positive alcohol use a couple times a month. No illicit drugs. FAMILY HISTORY: Noncontributory. REVIEW OF SYSTEMS: Pertinent features of review of systems mentioned in the history of present illness. Otherwise, negative. PHYSICAL EXAMINATION: GENERAL: She is a well-developed female who is in no acute distress. She is awake and alert. She appears distressed by abdominal pain. VITAL SIGNS: Includes temperature 98.4, BP 105/56, respirations 18, heart rate 77. HEENT: The head is atraumatic. Extraocular movements grossly intact, pupils reactive to light. No icterus. Oropharynx moist mucosa without lesions. NECK: Supple without adenopathy. LUNGS: Clear breath sounds bilaterally. The breath sounds are diminished at the bases. HEART: Regular S1 and S2, without murmurs, rubs or gallops. ABDOMEN: Severe tenderness at the left lower quadrant. No palpable mass. RECTAL: Not performed. EXTREMITIES: No clubbing, cyanosis or edema. SKIN: No rash. NEUROLOGIC: No gross focal findings. PSYCHIATRIC: The patient is calm and cooperative. LABORATORY DATA: WBC 5.5, platelets 253. Creatinine 0.7, estimated GFR greater than 89. Liver function tests normal. IMPRESSION: Diverticular abscess. The patient is status post abscess drainage and culture is pending. RECOMMENDATIONS: 1. Continue Levaquin. 2. Continue metronidazole. 3. Followup culture results because the patient may have infection due to bacteria, which may require different antibiotics than her current regimen. Thank you for this consultation. The patient's progress will be monitored and further recommendations will be made upon followup if necessary. Owen Pagan MD FFD/sv , 05:56 PM , 06:07 PM
[2018-12-26] MEDS: Sod Chloride 0.9% Inj 1,000 ML IV.CONT SCH ×2 (00:22→13:45)
[2018-12-26] MEDS: HYDROmorphone PF Inj 0.5 MG/0.5 ML Syringe IV.PUSH PRN ×4 (08:11→22:42)
[2018-12-26 09:31] LABS: Baso % (Auto) 0.3 % (0.0-2.0); Eos # (Auto) 0.1 th/mm3 (0.0-0.4); Eos % (Auto) 1.4 % (0.0-4.0); Hematocrit 39.6 % (35.0-46.0); Hemoglobin 13.9 gm/dL (11.6-15.3); Lymph # (Auto) 2.1 th/mm3 (1.0-4.8); Lymph % (Auto) 25.4 % (9.0-44.0); Mean Corpuscular HGB Conc 35.1 % (32.0-36.0); Mean Corpuscular Hemoglobin 32.7 pg (27.0-34.0); Mean Corpuscular Volume 92.9 fL (80.0-100.0); Mean Platelet Volume 10.9 fL (7.0-11.0); Mono # (Auto) 0.6 th/mm3 (0.0-0.9); Neut # (Auto) 5.4 th/mm3 (1.8-7.7); Neut % (Auto) 65.9 % (16.0-70.0); Platelet Count 232 th/mm3 (150-450); Red Blood Count 4.26 mil/mm3 (4.00-5.30); Red Cell Distribution Width 12.2 % (11.6-17.2); White Blood Count 8.2 th/mm3 (4.0-11.0)
--- NOTE | 2018-12-26 09:38 | P.PNGS ---
Subjective Interval history: DAILY PROGRESS NOTE FOR SURGICAL ATTENDING, DR. MJ RANDOLPH Resting in bed No issues Still with LLQ tenderness Physical Exam Vital signs: Vital Signs 12/25/18 12:00 12/25/18 15:20 12/25/18 15:35 Temperature 98.2 F 99.4 F Pulse Rate 52 L 87 100 H Respiratory Rate 17 18 18 Blood Pressure 103/70 129/82 124/75 Pulse Oximetry 98 96 96 12/25/18 15:50 12/25/18 16:00 12/25/18 20:00 Temperature 98.4 F 99.0 F Pulse Rate 98 H 77 94 H Respiratory Rate 18 18 17 Blood Pressure 122/79 105/56 L 113/59 L Pulse Oximetry 98 99 95 12/26/18 00:00 12/26/18 04:00 12/26/18 08:00 Temperature 98.4 F 98.2 F 98.5 F Pulse Rate 89 93 H 77 Respiratory Rate 18 17 17 Blood Pressure 111/56 L 112/64 111/65 Pulse Oximetry 98 97 98 Intake & Output 12/25/18 12/26/18 12/26/18 18:59 06:59 18:59 Intake Total 200 / 200 1430 / 1430 500 / 500 Balance 200 / 200 1430 / 1430 500 / 500 Weight 80.7 kg Intake: IV 200 / 200 250 / 250 500 / 500 NS Inj 1,000 ML @ 80 mls/hr IV. 500 / 500 CONT .[id number] RADHA Rx#: [id number] Levaquin 750 mg Premix Inj 150 150 / 150 ML @ 100 mls/hr IV.SIG Q24H RADHA Rx#:[id number] Flagyl 500 MG Inj 100 ML @ 100 200 / 200 100 / 100 mls/hr IV.SIG Q8H RADHA Rx#: [id number] Oral 1180 / 1180 Other: # Voids 3 # Urine Diapers 4 Narrative: Alert and awake Abd: soft; LLQ tenderness; Bandaide in place from IR drainage of abscess Results - Labs 12/26/18 07:53 12/26/18 07:53 Laboratory Results - last 24 hr 12/25/18 12/26/18 12:30 07:53 WBC 8.2 RBC 4.26 Hgb 13.9 Hct 39.6 MCV 92.9 MCH 32.7 MCHC 35.1 RDW 12.2 Plt Count 232 MPV 10.9 Neut % (Auto) 65.9 Lymph % (Auto) 25.4 [place] % (Auto) 7.0 Eos % (Auto) 1.4 Baso % (Auto) 0.3 Neut # (Auto) 5.4 Lymph # (Auto) 2.1 [place] # (Auto) 0.6 Eos # (Auto) 0.1 Baso # (Auto) 0.0 WBC Differential . Differential Comment Auto diff final PT 11.9 H INR 1.2 - Imaging Imaging: ITS Impressions Abdomen/Pelvis CT 12/23/18 00:00 CONCLUSION: 1. Diverticulitis with diverticular abscess measuring 4.0 x 2.4 cm. This is slightly more prominent from previous study. ITS Impressions Abdomen/Pelvis CT 12/23/18 00:00 CONCLUSION: 1. Diverticulitis with diverticular abscess measuring 4.0 x 2.4 cm. This is slightly more prominent from previous study. Needle Aspiration CT 12/25/18 13:30 CONCLUSION: 1. Uncomplicated CT guided drainage. CT scan - abdomen: report reviewed, image reviewed Assessment and Plan - Assessment (1) Colonic diverticular abscess Code(s): K57.20 - Diverticulitis of large intestine with perforation and abscess without bleeding Status: Acute - Plan 33 year old female with acute diverticulitis with abscess -s/p drainage of abscess -Await culture -Continue clear liquids for now -OOB as tolerated -ID now following -Will continue to attempt non operative treatment to avoid colostomy. If she failed non operative treatment---will require operative intervention which will likely involve colostomy - Attending Attestation NOTE FOR SURGICAL ATTENDING, DR. MJ RANDOLPH Patient seen Still some mild discomfort tolerating diet having flatus and bowel activity I agree with above assessment and plan. The exam, history, and the medical decision-making described in the above note were completed with the assistance of the mid-level provider. I reviewed and agree with the findings presented. I attest that I had a [id number] encounter with the patient on the same day, and personally performed and documented my assessment and findings in the medical record. The following services were provided during this hospital visit: Chart data review, vital sign assessments/reviewing monitor data Review of consultations notes if present. Medication orders/review and/or management Ordering and/or reviewing lab tests Ordering and/or interpreting/reviewing x-rays and/or diagnostic studies Care of the patient and discussion of the patient with the care team Documentation time To help prompt me to consider important information that might be impacting today's encounter and assessment, Information from prior notes written by myself or my colleagues may have been "brought forward/copy and pasted" into today's note.
[2018-12-26 09:52] LABS: Anion Gap 8 meq/L (5-15); Blood Urea Nitrogen 7 mg/dL (7-18); Calcium 8.6 mg/dL (8.5-10.1); Carbon Dioxide 24.7 meq/L (21.0-32.0); Chloride 107 meq/L (98-107); Glomerular Filtration Rate Greater Than 89 mL/min (>89); Glucose,Random 68 mg/dL (74-106); Magnesium 2.1 mg/dL (1.5-2.5); Potassium 3.8 meq/L (3.5-5.1); Sodium 140 meq/L (136-145)
--- NOTE | 2018-12-26 10:02 | CT ---
EXAM DATE: 12/25/2018 3:18 PM EST AGE/SEX: 33 years / Female INDICATIONS: Aspiration of diverticular abscess CLINICAL DATA: This is the patient's initial encounter. Patient reports that signs and symptoms have been present for 3 days and indicates a pain score of 10/10. MEDICAL/SURGICAL HISTORY: None. Hysterectomy. COMPARISON: No prior exams available for comparison. SEDATION TIME (min): 30 BIOPSY SITE: abdominal fluid MEDICATION(S): 5.5 mg midazolam (Versed) IV 250 mcg fentanyl (Sublimaze) IV DEVICE(S): 19 gauge Introducer FLUID: Total volume of 4 of clear, red fluid was removed. Fluid was sent to lab for ordered studies.. . . PROCEDURE : CT guided drainage of the abdominal fluid. The risks, benefits and alternatives to the procedure were explained and verbal and written consent w as obtained. Using automated exposure control and adjustment of the mA and/or kV according to patient size, radiation dose was kept as low as reasonably achievable to obtain optimal diagnostic quality i mages. The site was prepped in sterile fashion. Full sterile technique was used, including cap, ma sk, sterile gloves and gown and a large sterile sheet. Hand hygiene and 2% chlorhexidine and/or beta dine/alcohol prep was utilized per protocol for cutaneous antisepsis. The skin and subcutaneous tiss ues were infiltrated with local anesthetic solution. DICOM format image data is available electronic ally for review and comparison. Using CT guidance the small fluid collection and inflammatory change in the left lower quadrant was l ocalized. The skin above was anesthetized with 10 cc 1% lidocaine. An 18-gauge Mir blunt needle w as advanced through the skin and down into the collection. There was immediate return of approximatel y 8-10 cc of serous, blood tinged fluid. Approximately 5 cc was collected and sent for Gram stain cul ture and sensitivity. No drain was left in place. Postprocedure small amount of fluid within the cent ral aspect of this was was no longer identified. The patient tolerated the procedure well and there were no complications. The patient tolerated the procedure well and there were no complications. The patient was sent to post anesthesia recovery in s table condition. CONCLUSION: 1. Uncomplicated CT guided drainage. Electronically signed by: Hima Malone MD Board Certified Radiologist 12/26/2018 10:01 AM EST
--- NOTE | 2018-12-26 12:44 | P.PNIM ---
Subjective Interval history: Patient still has some abd pain that is constant, mostly in the lower quadrants. She is tolerating her liquid diet. Physical Exam Vital signs: Vital Signs 12/25/18 15:20 12/25/18 15:35 12/25/18 15:50 Temperature 99.4 F Pulse Rate 87 100 H 98 H Respiratory Rate 18 18 18 Blood Pressure 129/82 124/75 122/79 Pulse Oximetry 96 96 98 12/25/18 16:00 12/25/18 20:00 12/26/18 00:00 Temperature 98.4 F 99.0 F 98.4 F Pulse Rate 77 94 H 89 Respiratory Rate 18 17 18 Blood Pressure 105/56 L 113/59 L 111/56 L Pulse Oximetry 99 95 98 12/26/18 04:00 12/26/18 08:00 12/26/18 08:41 Temperature 98.2 F 98.5 F Pulse Rate 93 H 77 Respiratory Rate 17 17 18 Blood Pressure 112/64 111/65 Pulse Oximetry 97 98 Intake & Output 12/25/18 12/26/18 12/26/18 18:59 06:59 18:59 Intake Total 200 / 200 1430 / 1430 600 / 600 Balance 200 / 200 1430 / 1430 600 / 600 Weight 80.7 kg Intake: IV 200 / 200 250 / 250 600 / 600 NS Inj 1,000 ML @ 80 mls/hr IV. 500 / 500 CONT .[id number] RADHA Rx#: [id number] Levaquin 750 mg Premix Inj 150 150 / 150 ML @ 100 mls/hr IV.SIG Q24H RADHA Rx#:[id number] Flagyl 500 MG Inj 100 ML @ 100 200 / 200 100 / 100 100 / 100 mls/hr IV.SIG Q8H RADHA Rx#: [id number] Oral 1180 / 1180 Other: # Voids 3 # Urine Diapers 4 Date of Last Bowel Movement 12/24/18 Narrative: EOMI S1S2 CTA b/l abd soft, complains of abd pain, bowel sounds positive No edema of exts Results Labs CBC & Chem 7: 12/26/18 07:53 12/26/18 07:53 Labs: Microbiology 12/25/18 Unknown Fluid - Other Gram Stain - Final 12/25/18 Unknown Fluid - Other Body Fluid Culture - Preliminary No growth in 24 hours 12/25/18 Unknown Fluid - Other Fungal Smear - Final No fungal elements seen Imaging Imaging: Impressions Needle Aspiration CT 12/25/18 13:30 CONCLUSION: 1. Uncomplicated CT guided drainage. Assessment and Plan (1) Colonic diverticular abscess: Code(s): K57.20 - Diverticulitis of large intestine with perforation and abscess without bleeding Status: Acute Abscess increased in size. Pain is the same or worse than 2 days ago. Will have IR evaluate current abscess and determine whether percutaneous drainage would be possible now that it is increased in size. If not, she will require operative intervention including colostomy. Patient vocalizes understanding of this as I explained this to her in detail. There is still a possibility that she could be put back together if her colon is prepped and both ends appear without any inflammation whatsoever. Plan This patient is a 33 y/o F who was admitted with acute diverticulitis with abscess. 1. Acute Diverticulitis with diverticular abscess Patient afebrile overnight On IV antibiotics, Flagyl and Levaquin. Patient has PCN allergy. Surgery and IR following the patient. She is s/p drainage of the fluid collection. 10cc of serious fluid drained and sent for cx and sensitivity. ID consulted, I appreciate their recs. No cx from the fluid drainage yet. Will follow up final cultures. I will discuss the case with ID. No surgical intervention recommended for now. 2. Hx of Hysterectomy 3. Hx of Uterine Fibroma 4. Hx of Menometrorrhagia Stable, no need for any urgent intervention. SCDs for Dvt prophylaxis. Discharge planning: I will discuss the case with ID today. We are awaiting culture results to discharge the patient on Po antibiotics. Progress Note: Quality VTE Deep Vein Thrombosis/Pulmonary Embolism Present on Admission: No
--- NOTE | 2018-12-26 16:16 | P.PNID ---
Subjective Remarks: Patient notes that the pain in her abdomen is not changed. Denies nausea. Denies chills. Afebrile. Wound culture pending. 33-year-old white female who has had history of multiple episodes of acute diverticulitis. The patient presented to emergency department with abdominal pain and was admitted on 12/21/2018. She presented with left-sided lower abdominal pain/burning. Her white count was normal and she was afebrile. She was evaluated and CT scan of the abdomen and pelvis showed persistent induration above the short segment of distal descending colon with increasing size of an enhancing thin wall and adjacent fluid collection, likely representing a peridiverticular abscess. The patient underwent needle aspiration of the fluid collection. This consultation is requested for antibiotic management. Past Medical History: PAST MEDICAL HISTORY: Hysterectomy due to fibroids, anxiety, ADHD, tonsillectomy. Allergies/Adverse Reactions: Allergies gentamicin Allergy (Severe, Verified 12/21/18 13:52) Permanent Disability penicillin G Allergy (Severe, Verified 12/21/18 13:52) Hives Sulfa (Sulfonamide Antibiotics) Allergy (Severe, Verified 12/21/18 13:52) Permanent dijsability Penicillins Allergy (Intermediate, Verified 12/21/18 13:52) RASH Objective Vital Signs 12/25/18 20:00 12/26/18 00:00 12/26/18 04:00 Temperature 99.0 F 98.4 F 98.2 F Pulse Rate 94 H 89 93 H Respiratory Rate 17 18 17 Blood Pressure 113/59 L 111/56 L 112/64 Pulse Oximetry 95 98 97 12/26/18 08:00 12/26/18 08:41 12/26/18 11:37 Temperature 98.5 F Pulse Rate 77 Respiratory Rate 17 18 18 Blood Pressure 111/65 Pulse Oximetry 98 12/26/18 12:00 12/26/18 13:59 12/26/18 15:50 Temperature 98.1 F 98.3 F Pulse Rate 76 74 Respiratory Rate 17 18 17 Blood Pressure 99/65 L 111/63 Pulse Oximetry 98 100 Intake & Output 12/25/18 12/26/18 12/26/18 18:59 06:59 18:59 Intake Total 200 / 200 1430 / 1430 1600 / 1600 Output Total 600 / 600 Balance 200 / 200 1430 / 1430 1000 / 1000 Weight 80.7 kg Intake: IV 200 / 200 250 / 250 1600 / 1600 NS Inj 1,000 ML @ 80 mls/hr IV. 1500 / 1500 CONT .[id number] RADHA Rx#: [id number] Levaquin 750 mg Premix Inj 150 150 / 150 ML @ 100 mls/hr IV.SIG Q24H RADHA Rx#:[id number] Flagyl 500 MG Inj 100 ML @ 100 200 / 200 100 / 100 100 / 100 mls/hr IV.SIG Q8H RADHA Rx#: [id number] Oral 1180 / 1180 Output: Stool 600 / 600 Other: # Voids 3 # Urine Diapers 4 Date of Last Bowel Movement 12/26/18 # Bowel Movements 1 12/25/18 Unknown Fluid - Other Gram Stain - Final 12/25/18 Unknown Fluid - Other Body Fluid Culture - Preliminary No growth in 24 hours 12/25/18 Unknown Fluid - Other Fungal Smear - Final No fungal elements seen 12/25/18 Unknown Fluid - Other Fungal Culture - Pending 12/25/18 Unknown Fluid - Other Acid Fast Bacilli Smear - Pending 12/25/18 Unknown Fluid - Other Mycobacterial Culture - Pending Lab - Hematology Results 12/25/18 12/26/18 06:25 07:53 WBC 5.5 8.2 RBC 4.14 4.26 Hgb 13.2 13.9 Hct 38.4 39.6 MCV 92.6 92.9 MCH 31.8 32.7 MCHC 34.3 35.1 RDW 12.4 12.2 Plt Count 253 232 MPV 9.9 10.9 Neut % (Auto) 51.4 65.9 Lymph % (Auto) 36.7 25.4 [place] % (Auto) 9.0 H 7.0 Eos % (Auto) 2.2 1.4 Baso % (Auto) 0.7 0.3 Neut # (Auto) 2.8 5.4 Lymph # (Auto) 2.0 2.1 [place] # (Auto) 0.5 0.6 Eos # (Auto) 0.1 0.1 Baso # (Auto) 0.0 0.0 WBC Differential . . Differential Comment Auto diff final Auto diff final Lab - Chemistry Results 12/25/18 12/26/18 06:25 07:53 Sodium 143 140 Potassium 3.9 3.8 Chloride 109 H 107 Carbon Dioxide 28.1 24.7 Anion Gap 6 8 BUN 8 7 Creatinine 0.70 0.68 Estimated GFR Greater than 89 Greater than 89 Random Glucose 81 68 L Calcium 8.3 L 8.6 Magnesium 2.1 Total Bilirubin 0.3 AST 21 ALT 26 Alkaline Phosphatase 52 Total Protein 7.0 Albumin 3.3 L Imaging: ITS Impressions Abdomen/Pelvis CT 12/23/18 00:00 CONCLUSION: 1. Diverticulitis with diverticular abscess measuring 4.0 x 2.4 cm. This is slightly more prominent from previous study. Needle Aspiration CT 12/25/18 13:30 CONCLUSION: 1. Uncomplicated CT guided drainage. Physical Exam: PHYSICAL EXAMINATION: GENERAL: Patient in no acute distress. She is awake and alert. HEENT: The head is atraumatic. Extraocular movements grossly intact, pupils reactive to light. No icterus. Oropharynx moist mucosa without lesions. NECK: Supple without adenopathy. LUNGS: Clear breath sounds. The breath sounds are diminished at the bases. HEART: Regular S1 and S2, without murmurs, rubs or gallops. ABDOMEN: Severe tenderness at the left lower quadrant is unchanged. No palpable mass. EXTREMITIES: No clubbing, cyanosis or edema. SKIN: No rash. NEUROLOGIC: No gross focal findings. PSYCHIATRIC: Calm and cooperative Assessment and Plan - Plan IMPRESSION: Diverticular abscess of large intestine. Status post abscess drainage. RECOMMENDATIONS: 1. Continue Levaquin. 2. Continue metronidazole. 3. Followup culture results because the patient may have infection due to bacteria, which may require different antibiotics than her current regimen.
[2018-12-27] MEDS: Sod Chloride 0.9% Inj 1,000 ML IV.CONT SCH ×2 (01:10→14:23)
[2018-12-27] MEDS: HYDROmorphone PF Inj 0.5 MG/0.5 ML Syringe IV.PUSH PRN ×2 (08:53→20:37)
--- NOTE | 2018-12-27 11:26 | P.PNGS ---
Subjective Interval history: DAILY PROGRESS NOTE FOR SURGICAL ATTENDING, DR. MJ RANDOLPH Resting in bed Hungry Physical Exam Vital signs: Vital Signs 12/26/18 11:37 12/26/18 12:00 12/26/18 13:59 Temperature 98.1 F Pulse Rate 76 Respiratory Rate 18 17 18 Blood Pressure 99/65 L Pulse Oximetry 98 12/26/18 15:50 12/26/18 20:00 12/27/18 00:00 Temperature 98.3 F 98.2 F 98.2 F Pulse Rate 74 83 88 Respiratory Rate 17 17 17 Blood Pressure 111/63 100/57 L 113/55 L Pulse Oximetry 100 99 100 12/27/18 08:00 Temperature 97.9 F Pulse Rate 81 Respiratory Rate 17 Blood Pressure 105/68 Pulse Oximetry 99 Intake & Output 12/26/18 12/27/18 12/27/18 18:59 06:59 18:59 Intake Total 1700 / 1700 2250 / 2250 100 / 100 Output Total 600 / 600 Balance 1100 / 1100 2250 / 2250 100 / 100 Weight 80.7 kg Intake: IV 1700 / 1700 1350 / 1350 100 / 100 NS Inj 1,000 ML @ 80 mls/hr IV. 1500 / 1500 1100 / 1100 CONT .[id number] RADHA Rx#: [id number] Levaquin 750 mg Premix Inj 150 150 / 150 ML @ 100 mls/hr IV.SIG Q24H RADHA Rx#:[id number] Flagyl 500 MG Inj 100 ML @ 100 200 / 200 100 / 100 100 / 100 mls/hr IV.SIG Q8H RADHA Rx#: [id number] Oral 900 / 900 Output: Stool 600 / 600 Other: # Voids 3 Date of Last Bowel Movement 12/26/18 12/26/18 12/26/18 # Bowel Movements 1 Narrative: Alert and awake Abd: continues to have LEFT lower quadrant/lateral tenderness to palpation Results - Labs 12/26/18 07:53 12/26/18 07:53 - Imaging Imaging: ITS Impressions Abdomen/Pelvis CT 12/23/18 00:00 CONCLUSION: 1. Diverticulitis with diverticular abscess measuring 4.0 x 2.4 cm. This is slightly more prominent from previous study. Needle Aspiration CT 12/25/18 13:30 CONCLUSION: 1. Uncomplicated CT guided drainage. Assessment and Plan - Assessment (1) Colonic diverticular abscess Code(s): K57.20 - Diverticulitis of large intestine with perforation and abscess without bleeding Status: Acute - Plan 33 year old female with acute diverticulitis with abscess -s/p drainage of abscess -Await culture -Advance to low fiber/low residue diet -OOB as tolerated -ID following -Will continue to attempt non operative treatment to avoid colostomy. Will need outpatient GI consult for colonoscopy in the upcoming weeks. - Attending Attestation NOTE FOR SURGICAL ATTENDING, DR. MJ RANDOLPH Pain appears improved Tolerating some p.o. and having flatus and bowel activity Plan nonoperative treatment allow full colonic workup and then proceed with resected segment at a later date I agree with above assessment and plan. The exam, history, and the medical decision-making described in the above note were completed with the assistance of the mid-level provider. I reviewed and agree with the findings presented. I attest that I had a [id number] encounter with the patient on the same day, and personally performed and documented my assessment and findings in the medical record. The following services were provided during this hospital visit: Chart data review, vital sign assessments/reviewing monitor data Review of consultations notes if present. Medication orders/review and/or management Ordering and/or reviewing lab tests Ordering and/or interpreting/reviewing x-rays and/or diagnostic studies Care of the patient and discussion of the patient with the care team Documentation time To help prompt me to consider important information that might be impacting today's encounter and assessment, Information from prior notes written by myself or my colleagues may have been "brought forward/copy and pasted" into today's note.
--- NOTE | 2018-12-27 13:19 | P.PNIM ---
Subjective Interval history: Patient still has abdominal pain, slightly improved since yesterday. Physical Exam Vital signs: Vital Signs 12/26/18 13:59 12/26/18 15:50 12/26/18 20:00 Temperature 98.3 F 98.2 F Pulse Rate 74 83 Respiratory Rate 18 17 17 Blood Pressure 111/63 100/57 L Pulse Oximetry 100 99 12/27/18 00:00 12/27/18 08:00 Temperature 98.2 F 97.9 F Pulse Rate 88 81 Respiratory Rate 17 17 Blood Pressure 113/55 L 105/68 Pulse Oximetry 100 99 Intake & Output 12/26/18 12/27/18 12/27/18 18:59 06:59 18:59 Intake Total 1700 / 1700 2250 / 2250 100 / 100 Output Total 600 / 600 Balance 1100 / 1100 2250 / 2250 100 / 100 Weight 80.7 kg Intake: IV 1700 / 1700 1350 / 1350 100 / 100 NS Inj 1,000 ML @ 80 mls/hr IV. 1500 / 1500 1100 / 1100 CONT .[id number] RADHA Rx#: [id number] Levaquin 750 mg Premix Inj 150 150 / 150 ML @ 100 mls/hr IV.SIG Q24H RADHA Rx#:[id number] Flagyl 500 MG Inj 100 ML @ 100 200 / 200 100 / 100 100 / 100 mls/hr IV.SIG Q8H RADHA Rx#: [id number] Oral 900 / 900 Output: Stool 600 / 600 Other: # Voids 3 Date of Last Bowel Movement 12/26/18 12/26/18 12/26/18 # Bowel Movements 1 Narrative: EOMI S1S2 CTA b/l abd soft, complains of abd pain, bowel sounds positive No edema of exts Results Labs CBC & Chem 7: 12/26/18 07:53 12/26/18 07:53 Labs: Microbiology 12/25/18 Unknown Fluid - Other Gram Stain - Final 12/25/18 Unknown Fluid - Other Body Fluid Culture - Preliminary No growth in 48 hours 12/25/18 Unknown Fluid - Other Fungal Smear - Final No fungal elements seen Assessment and Plan (1) Colonic diverticular abscess: Code(s): K57.20 - Diverticulitis of large intestine with perforation and abscess without bleeding Status: Acute Abscess increased in size. Pain is the same or worse than 2 days ago. Will have IR evaluate current abscess and determine whether percutaneous drainage would be possible now that it is increased in size. If not, she will require operative intervention including colostomy. Patient vocalizes understanding of this as I explained this to her in detail. There is still a possibility that she could be put back together if her colon is prepped and both ends appear without any inflammation whatsoever. Plan This patient is a 33 y/o F who was admitted with acute diverticulitis with abscess. 1. Acute Diverticulitis with diverticular abscess Patient afebrile overnight, still having abd pain. Improving. On IV antibiotics, Flagyl and Levaquin. Patient has PCN allergy. Surgery and IR following the patient. She is s/p drainage of the fluid collection. 10cc of serious fluid drained and sent for cx and sensitivity. Surgery advanced the patient's diet today. If tolerates the diet then she is a possible discharge for tomorrow am. Will discuss the case with surgery today regarding possible discharge tomorrow. No cx from the fluid drainage yet. Will follow up final cultures. I will discuss the case with ID. No surgical intervention recommended for now. 2. Hx of Hysterectomy 3. Hx of Uterine Fibroma 4. Hx of Menometrorrhagia Stable, no need for any urgent intervention. SCDs for Dvt prophylaxis. Discharge planning: Will discuss with ID and Surgery for possible discharge in the am. Will need outpatient follow up with GI after discharge for colonoscopy in a few weeks. Patient was evaluated by Dr. Garcia during this hospitalization. Progress Note: Quality VTE Deep Vein Thrombosis/Pulmonary Embolism Present on Admission: No
--- NOTE | 2018-12-27 17:03 | P.PNID ---
Subjective Remarks: Patient notes that the pain in her abdomen is improved. She is ambulating in the room. She notes that she feels less bloated. Denies chills. Afebrile. Wound culture has no growth at 48 hours. 33-year-old white female who has had history of multiple episodes of acute diverticulitis. The patient presented to emergency department with abdominal pain and was admitted on 12/21/2018. She presented with left-sided lower abdominal pain/burning. Her white count was normal and she was afebrile. She was evaluated and CT scan of the abdomen and pelvis showed persistent induration above the short segment of distal descending colon with increasing size of an enhancing thin wall and adjacent fluid collection, likely representing a peridiverticular abscess. The patient underwent needle aspiration of the fluid collection. This consultation is requested for antibiotic management. Past Medical History: PAST MEDICAL HISTORY: Hysterectomy due to fibroids, anxiety, ADHD, tonsillectomy. Allergies/Adverse Reactions: Allergies gentamicin Allergy (Severe, Verified 12/21/18 13:52) Permanent Disability penicillin G Allergy (Severe, Verified 12/21/18 13:52) Hives Sulfa (Sulfonamide Antibiotics) Allergy (Severe, Verified 12/21/18 13:52) Permanent dijsability Penicillins Allergy (Intermediate, Verified 12/21/18 13:52) RASH Objective Vital Signs 12/26/18 20:00 12/27/18 00:00 12/27/18 08:00 Temperature 98.2 F 98.2 F 97.9 F Pulse Rate 83 88 81 Respiratory Rate 17 17 17 Blood Pressure 100/57 L 113/55 L 105/68 Pulse Oximetry 99 100 99 12/27/18 12:00 Temperature 98.1 F Pulse Rate 72 Respiratory Rate 16 Blood Pressure 97/59 L Pulse Oximetry 100 Intake & Output 12/26/18 12/27/18 12/27/18 18:59 06:59 18:59 Intake Total 1700 / 1700 2250 / 2250 1200 / 1200 Output Total 600 / 600 Balance 1100 / 1100 2250 / 2250 1200 / 1200 Weight 80.7 kg Intake: IV 1700 / 1700 1350 / 1350 1200 / 1200 NS Inj 1,000 ML @ 80 mls/hr IV. 1500 / 1500 1100 / 1100 1000 / 1000 CONT .[id number] [facility] Rx#: [id number] Levaquin 750 mg Premix Inj 150 150 / 150 ML @ 100 mls/hr IV.SIG Q24H [facility] Rx#:[id number] Flagyl 500 MG Inj 100 ML @ 100 200 / 200 100 / 100 200 / 200 mls/hr IV.SIG Q8H [facility] Rx#: [id number] Oral 900 / 900 Output: Stool 600 / 600 Other: # Voids 3 Date of Last Bowel Movement 12/26/18 12/26/18 12/26/18 # Bowel Movements 1 12/25/18 Unknown Fluid - Other Acid Fast Bacilli Smear - Final No acid fast bacilli seen 12/25/18 Unknown Fluid - Other Mycobacterial Culture - Pending 12/25/18 Unknown Fluid - Other Gram Stain - Final 12/25/18 Unknown Fluid - Other Body Fluid Culture - Preliminary No growth in 48 hours 12/25/18 Unknown Fluid - Other Fungal Smear - Final No fungal elements seen 12/25/18 Unknown Fluid - Other Fungal Culture - Pending Lab - Hematology Results 12/26/18 07:53 WBC 8.2 RBC 4.26 Hgb 13.9 Hct 39.6 MCV 92.9 MCH 32.7 MCHC 35.1 RDW 12.2 Plt Count 232 MPV 10.9 Neut % (Auto) 65.9 Lymph % (Auto) 25.4 [place] % (Auto) 7.0 Eos % (Auto) 1.4 Baso % (Auto) 0.3 Neut # (Auto) 5.4 Lymph # (Auto) 2.1 [place] # (Auto) 0.6 Eos # (Auto) 0.1 Baso # (Auto) 0.0 WBC Differential . Differential Comment Auto diff final Lab - Chemistry Results 12/26/18 07:53 Sodium 140 Potassium 3.8 Chloride 107 Carbon Dioxide 24.7 Anion Gap 8 BUN 7 Creatinine 0.68 Estimated GFR Greater than 89 Random Glucose 68 L Calcium 8.6 Magnesium 2.1 Imaging: ITS Impressions Abdomen/Pelvis CT 12/23/18 00:00 CONCLUSION: 1. Diverticulitis with diverticular abscess measuring 4.0 x 2.4 cm. This is slightly more prominent from previous study. Needle Aspiration CT 12/25/18 13:30 CONCLUSION: 1. Uncomplicated CT guided drainage. Physical Exam: PHYSICAL EXAMINATION: GENERAL: Patient in no acute distress. She is awake and alert. HEENT: The head is atraumatic. Extraocular movements grossly intact, pupils reactive to light. No icterus. Oropharynx moist mucosa without lesions. NECK: Supple without adenopathy. LUNGS: Clear breath sounds. The breath sounds are diminished at the bases. HEART: Regular S1 and S2, without murmurs, rubs or gallops. ABDOMEN: Severe tenderness at the left lower quadrant is unchanged. No palpable mass. EXTREMITIES: No clubbing, cyanosis or edema. SKIN: No rash. NEUROLOGIC: No gross focal findings. PSYCHIATRIC: Calm and cooperative Assessment and Plan - Plan IMPRESSION: Diverticular abscess of large intestine. Status post abscess drainage. Cultures negative so far. RECOMMENDATIONS: 1. Continue Levaquin. 2. Continue metronidazole. 3. If the culture is negative at 72 hours, I recommend giving her Levaquin or ciprofloxacin p.o. along with metronidazole p.o 500 mg 3 times daily for another 7 days.
[2018-12-28] MEDS: Sod Chloride 0.9% Inj 1,000 ML IV.CONT SCH (04:53)
[2018-12-28 09:27] VITALS: BP 111/62; PULSE 69; RESP 19; TEMP 98.1; O2SAT 98
--- NOTE | 2018-12-28 11:10 | P.DS ---
DS: Providers Date of admission: 12/21/18 15:42 Primary care physician: No Primary Care Physician Consults: 12/21/18 17:06 Consult to Gastroenterology Routine Consulting Provider: Jd Baxter V Reason for Consultation: Acute diverticulitis with abscess Notified:: Service Spoke with:: Babs Date Notified:: 12/21/18 Time Notified:: 17:18 Ordering Provider: JOHN Consult to General Surgery Routine Consulting Provider: Chrsi Garduno Reason for Consultation: Acute diverticulitis with abscess Notified:: Service Spoke with:: Babs Date Notified:: 12/21/18 Time Notified:: 17:20 Ordering Provider: JOHN 12/25/18 15:29 Consult to Infectious Diseases Routine Consulting Provider: Owen Pagan Reason for Consultation: Diverticular abscess Notified:: Service Spoke with:: Arely Date Notified:: 12/25/18 Time Notified:: 15:32 Ordering Provider: WOODY Brief History from admission: Mrs. Gallegos is a 33-year-old female. She has come in the hospital secondary to abdominal pain. Because of the abdominal pain is diverticulitis. She has problems with recurrent diverticulitis. She never had a history of this but about 1.5 years ago she had a first episode of diverticulitis. Since then she has been getting episodes about every 3 months, this will be her sixth episode in 1.5 years. Imaging shows evidence of a fluid- filled mass of 3 cm suggestive of abscess or microperforation with abscess. Some of the changes seen on CT could be chronic given her frequent recurrence of disease. She denies any recent fevers. Primary symptom has been pain. No other complaints at this time. She has no other active medical problems. She does have a past history of uterine fibroma, which has caused her menometrorrhagia in the past. For this she underwent a partial hysterectomy, her cervix and ovaries remain intact. No other complaints tonight. DS: Diagnosis Discharge Diagnosis (1) Colonic diverticular abscess: Status: Acute DS: Summary This patient is a 33 y/o F with a hx of hysterectomy, uterine fibromas, and menometrorragia who presented with abd pain and a fever. She was admitted with acute diverticulitis with abscess. 1. Acute Diverticulitis with diverticular abscess Patient afebrile over the past few days, still having abd pain. Improving. She was initially admitted and started on iv antibiotics. CT abd showed a diverticular abscess. IR and surgery were consulted to evaluate the patient. Pt underwent IR drainage of the abscess. Surgery wants to continue with conservative management for now to avoid a colostomy. They are recommending that the patient follow up with GI in a few weeks for a colonoscopy. ID evaluated the patient. Recs are to continue Levaquin and flagyl for one more week. Fluid cxs and sensitivity are pending. Surgery advanced the patient's diet yesterday. She is tolerating the diet fine. Abd pain is improving however still present. She will be given 3 days of [place]. Eforsce was checked prior to giving the patient pain medications. She will be discharged home today. Planning for follow up with GI and instructions were given to the patient prior to her leaving the hospital. Scripts were also given to the patient. 2. Hx of Hysterectomy 3. Hx of Uterine Fibroma 4. Hx of Menometrorrhagia Stable, no need for any urgent intervention. Time Spent with Patient Total time spent providing and/or coordinating discharge services: Quality: VTE Deep Vein Thrombosis/Pulmonary Embolism Present on Admission: No Exam Narrative Exam Narrative: S1S2 CTA b/l abd soft, complains of abd pain which is improving, bowel sounds positive No edema of exts Results Labs on day of discharge: Preliminary micro results at discharge 12/25/18 Unknown Body Fluid Culture - Preliminary Fluid - Other No growth in 48 hours Impressions ITS Impressions Abdomen/Pelvis CT 12/23/18 00:00 CONCLUSION: 1. Diverticulitis with diverticular abscess measuring 4.0 x 2.4 cm. This is slightly more prominent from previous study. Needle Aspiration CT 12/25/18 13:30 CONCLUSION: 1. Uncomplicated CT guided drainage. Discharge Plan Discharge Disposition Patient Disposition: 01 Discharge Home Discharge Order Discharge Orders: Discharge Order (Routine); Ordered 12/28/18 Ordered By: Melonie Chin Physicians Team ED Provider: Henry Alfonso Primary Care Provider: Primary Care Barbara Matthew Attending Provider: Melonie Chin Other Providers: Jd Baxter V ; Chris Garduno ; Owen Pagan Rxs /Orders / Referrals /Forms Prescriptions: New metronidazole [Flagyl] 500 mg tablet 500 mg PO Q8H Qty: 21 RF: 0 levofloxacin [Levaquin] 750 mg tablet 750 mg PO DAILY 7 Days Qty: 7 RF: 0 hydrocodone-acetaminophen [[place]] 5-325 mg tablet 1 tab PO Q6H PRN (Reason: pain, severe) Qty: 12 RF: 0 No Action No Known Home Medications RF: 0 Referrals: [facility] [Outside] - See Instructions Jd Baxter MD [Physician] - See Instructions Chris Garduno MD [Physician] - See Instructions Primary Care Barbara Matthew [Primary Care Provider] - See Instructions Discharge Instructions Patient Printed Instructions: Diverticulitis (GEN), Diverticulitis Diet (GEN) Additional Instructions: Follow up with GI outpatient in 2 weeks for colonoscopy. Surgery recommends non operative management to avoid colostomy. Status ED Status: Left Department
== END 2018-12-28 11:18 | disposition home or self-care (01) | DRG 392 ==
LOC: PHED 13:39 → PHEDA 15:42 → PH3 17:55 → N07 12-24 17:39
PROVIDERS: ADMIT Hospitalist; ATTEND Hospitalist
CPT/HCPCS: 10009; 74177; 76360; 76937; 77012; 80048; 80053; 81001; 83690; 83735; 84703; 85025; 85610; 87015; 87070; 87102; 87116; 87205; 87206; 90774; 90775; 96374; 96375; 99145; 99152; 99153; 99285; C8952; J0744; J1170; J1956; J2250; J2270; J2405; J3010; J7030; Q9963; Q9967